=== PATIENT | male | born 1950 | race Caucasian/White ===

== ENCOUNTER → 2016-12-13 | Outpatient (CLI) | payer OTHER ==
[~2016-12-13] MED LIST: ASPI325T39 PO; FLUT0.0529 NAE; LVTUNK PO; MOME220A INH; OMEP40CA PO; PSYL0.524; SIMV40TA2 PO; TAMS0.4C38 PO
== END | disposition home or self-care (01) ==
LOC: C.LABBFT 08:32
PROVIDERS: ATTEND Internal Medicine
DX: E03.9 Hypothyroidism, unspecified (principal)

== ENCOUNTER → 2017-04-26 | Outpatient (CLI) | payer OTHER ==
[2017-04-26 12:29] LABS: HEMATOCRIT 39.5 % (42-52); LYMPH % 7.7 %; MEAN CELL VOLUME 87.6 fL (80-100); MEAN CORPUSCULAR HEMOGLOBIN 28.2 pg (25-34); MEAN CORPUSCULAR HGB CONC 32.2 g/dl (32-36); MEAN PLATELET VOLUME 10.7 fL (7.4-10.4); MONO % 6.7 %; NEUT % 83.9 %; PLATELET COUNT 168 K/uL (130-400); RED BLOOD COUNT 4.51 M/uL (4.7-6.1); WHITE BLOOD COUNT 7.93 K/uL (4.8-10.8)
[2017-04-26 12:30] LABS: BASO % 0.3 %; BASO ABS # 0.02 K/uL (0-0.2); COMPLETE YES; EOS % 1.3 %; IG% 0.1 %; LYMPH ABS # 0.61 K/uL (1.2-3.4)
[2017-04-26 12:55] LABS: PROSTATE SPECIFIC ANTIGEN 0.111 ng/ml (0.000-4.000); THYROID STIMULATING HORMONE 0.946 uIu/ml (0.300-4.500)
== END | disposition home or self-care (01) ==
LOC: C.LABBFT 08:04
PROVIDERS: ATTEND Internal Medicine
DX: D64.9 Anemia, unspecified (principal); N40.0 Benign prostatic hyperplasia without lower urinary tract symptoms; E03.9 Hypothyroidism, unspecified

== ENCOUNTER 2017-10-23 13:41 | Inpatient (IN) | payer OTHER ==
[~2017-10-23] VITALS: Ht 177.8 cm; Wt 85.7 kg
[2017-10-23] MEDS ORDERED: THIAMINE HCL 100 MG/ML 2 ML VIAL IV STA (13:57)
[2017-10-23] MEDS ORDERED: SODIUM CHLORIDE 0.9% 1000ML 1,000 ML IV ONE (13:57)
[2017-10-23] MEDS ORDERED: ONDANSETRON INJ 2 MG/ML 2 ML VIAL IV STA (14:00)
--- NOTE | 2017-10-23 14:02 | EMERGENCY ROOM VISIT NOTE ---
History Report prepared by Rinaibjohnson: Ade Oleary Under the Supervision of: Dr. Lukas Perry D.O. First contact with patient: 13:51 Chief Complaint: VOMITING Stated Complaint: VOMITING,DIARRHEA Nursing Triage Summary: pt reports waking at 0230 yesterday morning vomiting , diarrhea. not able to keep anything down. feels weak. has bilat abd pain History of Present Illness The patient is a 66 year old male who presents to the Emergency Room with complaints of persistent vomiting since 229 yesterday morning. He is accompanied by his . He reports he and his went out on Monday night, 2 days ago, and he had a "few beers". He felt fine when he went to bed except for minor acid reflux symptoms. At 229 morning, he woke up extremely nauseous and started vomiting. His vomit has been "dark" in color. He also complains of shortness of breath, abdominal pain, diarrhea and weakness. He reports he has not been able to keep anything down, not even liquids and has not been able to eat since Monday night. The patients states he was supposed to undergo an endoscopy recently, but he canceled the appointment. He has been rescheduled for later this year. The patient denies any fevers, chest pain, melena, hematochezia, urinary symptoms or leg swelling. Source of History: patient, spouse/significant other () Onset: 229 yesterday morning Position: other (global) Timing: other (persistent) Associated Symptoms: + SOB, + nausea, + diarrhea, + weakness, No fevers, No chest pain, No melena, No hematochezia, No urinary symptoms Review of Systems See HPI for pertinent positives & negatives. A total of 10 systems reviewed and were otherwise negative. Past Medical & Surgical Medical Problems: (1) GERD (gastroesophageal reflux disease) (2) Hyperlipidemia Social History Smoking Status: Never Smoker Alcohol Use: occasionally Drug Use: none Marital Status: Housing Status: lives with family Occupation Status: retired Current/Historical Medications Scheduled Aspirin (Aspirin Ec), 162.5 MG PO DAILY Fluticasone Propionate (Nasal) (Allergy Nasal [place] [address]), 2 SPRAYS TANVIR DAILY Levothyroxine Sodium (Synthroid), 125 MCG PO DAILY Mometasone Furoate (Inhalation (Asmanex Hfa), 1 PUFF INH QPM Omeprazole (Prilosec), 40 MG PO DAILY Psyllium (Metamucil), DAILY Simvastatin (Zocor), 40 MG PO QPM Tamsulosin Hcl (Flomax), 0.4 MG PO DAILY Allergies Coded Allergies: No Known Allergies (Unverified , 10/23/17) Physical Exam Vital Signs Date Time Temp Pulse Resp B/P (MAP) Pulse Ox O2 Delivery O2 Flow Rate FiO2 10/23/17 16:30 91 27 101/65 91 Oxymask 5.0 10/23/17 16:00 88 26 108/61 91 Oxymask 5.0 10/23/17 15:30 90 27 103/65 93 Oxymask 5.0 10/23/17 15:00 95 25 104/65 91 Oxymask 5.0 10/23/17 14:29 95 28 110/97 94 Nasal Cannula 2.0 10/23/17 14:13 94 Nasal Cannula 2.0 10/23/17 14:10 85 Room Air 10/23/17 13:56 94 10/23/17 13:48 36.6 120 20 83/58 96 Room Air Physical Exam GENERAL: Patient is awake, alert, mildly anxious but overall comfortable EYES: The conjunctivae are clear. The pupils are round and reactive. EARS, NOSE, MOUTH AND THROAT: The nose is without any evidence of any deformity. Mucous membranes are moist tongue is midline NECK: The neck is nontender and supple. RESPIRATORY: Lung sounds are diminished at the left base, mild tachypnea noted but no conversational dyspnea CARDIOVASCULAR: Regular rate and rhythm noted to auscultation, there are no murmurs noted GASTROINTESTINAL: The abdomen is soft. Bowel sounds are present in all quadrants. Abdomen is nontender MUSCULOSKELETAL/EXTREMITIES: There is no evidence of gross deformity full range of motion is noted in the hips and shoulders SKIN: There is no obvious evidence of any rash. There are no petechiae, pallor or cyanosis noted. NEUROLOGIC: Patient is awake alert and oriented x3 strength is symmetric patellar reflexes are 2+ bilaterally Medical Decision & Procedures ER Provider Diagnostic Interpretation: Radiology results as stated below per my review and radiologist interpretation: SINGLE VIEW CHEST CLINICAL HISTORY: Sepsis. FINDINGS: An AP, portable, upright chest radiograph is compared to study dated 12/01/15. The examination is degraded by portable technique and patient rotation. The heart is top normal for projection and there is atherosclerotic calcification of the thoracic aorta. Emphysema is suspected. There is patchy airspace consolidation throughout the left lung, typical in appearance for pneumonia. There is a trace associated left pleural effusion. The right lung appears clear. No pneumothorax is seen. The skeletal structures are osteopenic. The bony thorax is grossly intact. IMPRESSION: Patchy airspace consolidation is seen throughout the left lung and there is a small left pleural effusion. The appearance is typical for pneumonia. Radiographic follow-up to resolution is recommended.. Electronically signed by: Sid Bravo M.D. 10/23/2017 2:27 PM Laboratory Results 10/23/17 14:08 Red Blood Count 4.27, Mean Corpuscular Volume 82.7, Mean Corpuscular Hemoglobin 28.1, Mean Corpuscular Hemoglobin Concent 34.0, Mean Platelet Volume 10.0, Neutrophils (%) (Auto) 85.4, Lymphocytes (%) (Auto) 3.7, Monocytes (%) (Auto) 4.7, Eosinophils (%) (Auto) 0.2, Basophils (%) (Auto) 0.3, Neutrophils # (Auto) 11.39, Lymphocytes # (Auto) 0.49, Monocytes # (Auto) 0.62, Eosinophils # (Auto) 0.03, Basophils # (Auto) 0.04 10/23/17 14:08 Test 10/23/17 14:08 10/23/17 14:11 10/23/17 14:15 10/23/17 14:25 White Blood Count 13.33 K/uL (4.8-10.8) Red Blood Count 4.27 M/uL (4.7-6.1) Hemoglobin 12.0 g/dL (14.0-18.0) Hematocrit 35.3 % (42-52) Mean Corpuscular Volume 82.7 fL (80-100) Mean Corpuscular Hemoglobin 28.1 pg (25-34) Mean Corpuscular Hemoglobin Concent 34.0 g/dl (32-36) Platelet Count 205 K/uL (130-400) Mean Platelet Volume 10.0 fL (7.4-10.4) Neutrophils (%) (Auto) 85.4 % Lymphocytes (%) (Auto) 3.7 % Monocytes (%) (Auto) 4.7 % Eosinophils (%) (Auto) 0.2 % Basophils (%) (Auto) 0.3 % Neutrophils # (Auto) 11.39 K/uL (1.4-6.5) Lymphocytes # (Auto) 0.49 K/uL (1.2-3.4) Monocytes # (Auto) 0.62 K/uL (0.11-0.59) Eosinophils # (Auto) 0.03 K/uL (0-0.5) Basophils # (Auto) 0.04 K/uL (0-0.2) RDW Standard Deviation 40.7 fL (36.4-46.3) RDW Coefficient of Variation 13.5 % (11.5-14.5) Immature Granulocyte % (Auto) 5.7 % Immature Granulocyte # (Auto) 0.76 K/uL (0.00-0.02) Toxic Vacuolation 1+ Erythrocyte Sedimentation Rate 29 mm/hr (0-14) Prothrombin Time 13.8 SECONDS (9.0-12.0) Prothromb Time International Ratio 1.3 (0.9-1.1) Activated Partial Thromboplast Time 32.4 SECONDS (21.0-31.0) Partial Thromboplastin Ratio 1.2 Est Creatinine Clear Calc Drug Dose 43.2 ml/min Estimated GFR () 43.0 Estimated GFR (Non- 37.1 BUN/Creatinine Ratio 16.5 (10-20) Calcium Level 8.2 mg/dl (8.5-10.1) Phosphorus Level 3.8 mg/dl (2.5-4.9) Magnesium Level 1.6 mg/dl (1.8-2.4) Total Bilirubin 2.2 mg/dl (0.2-1) Aspartate Amino Transf (AST/SGOT) 36 U/L (15-37) Alanine Aminotransferase (ALT/SGPT) 35 U/L (12-78) Alkaline Phosphatase 64 U/L (45-117) Total Creatine Kinase 252 U/L (39-308) Creatine Kinase MB 4.0 ng/ml (0.5-3.6) Creatine Kinase MB Ratio 1.6 (0-3.0) Troponin I 0.059 ng/ml (0-0.045) C-Reactive Protein 27.70 mg/dl (0-0.29) Pro-B-Type Natriuretic Peptide 1214 pg/ml (0-900) Total Protein 6.5 gm/dl (6.4-8.2) Albumin 3.1 gm/dl (3.4-5.0) Globulin 3.4 gm/dl (2.5-4.0) Albumin/Globulin Ratio 0.9 (0.9-2) Lipase 71 U/L (73-393) Bedside Lactic Acid Venous 3.97 mmol/L (0.90-1.70) Bedside Hemoglobin 12.6 g/dl (14.0-18.0) Bedside Hematocrit 37 % (42-52) Bedside Sodium 133 mEq/L (135-144) Bedside Potassium 4.6 mEq/L (3.3-5.0) Bedside Chloride 99 mEq/L (101-112) Bedside Total CO2 24 mEq/l (24-31) Anion Gap 16.0 mmol/L (16-25) Bedside Blood Urea Nitrogen 30 mg/dl (7-18) Bedside Creatinine 1.8 mg/dl (0.6-1.3) Bedside Glucose (other) 104 mg/dl (70-99) Bedside Ionized Calcium (Vandana) 0.96 mmol/l (1.12-1.32) Influenza Type A (RT-PCR) Neg for Influ A (NEG) Influenza Type A Antigen Neg for Influ A (NEG) Influenza Type B Antigen Neg for Influ B (NEG) Influenza Type B (RT-PCR) Neg for Influ B (NEG) Venous Blood pH 7.40 (7.36-7.41) Venous Blood Partial Pressure CO2 43 mmHg (38.0-50.0) Venous Blood Partial Pressure O2 42 mmHg Venous Blood HCO3 26 mmol/L Venous Blood Oxygen Saturation < 60.0 % Venous Blood Base Excess 1.2 mEq/L Laboratory results per my review. Medications Administered Medications (Trade) Dose Ordered Sig/Nancy Route Start Time Stop Time Status Last Admin Dose Admin Sodium Chloride 1,000 ml @ 999 mls/hr Q1H1M ONCE IV 10/23/17 13:57 10/23/17 14:57 DC 10/23/17 14:26 999 MLS/HR Thiamine HCl (Vitamin B-1 Inj) 100 mg NOW STAT IV 10/23/17 13:57 10/23/17 13:59 DC 10/23/17 14:32 100 MG Ondansetron HCl (Zofran Inj) 4 mg NOW STAT IV 10/23/17 14:00 10/23/17 14:01 DC 10/23/17 14:32 4 MG Sodium Chloride 1,000 ml @ 999 mls/hr Q1H1M STAT IV 10/23/17 14:14 10/23/17 15:14 DC 10/23/17 14:26 999 MLS/HR Piperacillin Sod/ Tazobactam Sod (Zosyn Iv) 4.5 gm NOW STAT IV 10/23/17 14:14 10/23/17 14:15 DC 10/23/17 14:33 4.5 GM Magnesium Sulfate (Magnesium Sulfate) 2 gm NOW STAT IV 10/23/17 14:38 10/23/17 14:40 DC 10/23/17 15:01 2 GM ECG Indication: SOB/dyspnea Rate (beats per minute): 95 Rhythm: sinus rhythm Findings: no ectopy, other (Diffuse T-wave flattening noted, no acute ST segments) Comparison ECG Date: no prior available ED Course 1356: The patient was evaluated in room C6. A complete history and physical examination were performed. 1357: Thiamine HCl 100 mg IV, NSS 1000 ml @ 999 mls/hr IV. 1400: Zofran 4 mg IV. 1414: Zosyn 4.5 gm IV, NSS 1000 ml @ 999 mls/hr IV. 1438: Magnesium Sulfate 2 gm IV. 1450: I reevaluated the patient. He is resting comfortably. I discussed his results and my recommendation he remain in the hospital for further evaluation and management and he and his verbalized complete understanding and agreement. 1518: I discussed the patients case with Dr. Borjas, [facility] Hospitalist. The patient will be further evaluated. Medical Decision Prior records/ancillary studies reviewed. Triage Nursing notes reviewed. Additional history obtained from the patients . The patient's history was concerning for respiratory difficulties. Differential diagnosis: Etiologies such as infections, reactive airway disease, pneumonia, pneumothorax , COPD, CHF, cardiac ischemia, pulmonary embolism, musculoskeletal, gastrointestinal, as well as others were entertained. The patient is a 66-year-old male who presented to the emergency department for an evaluation of nausea and vomiting. The patient was found to be hypotensive as well as hypoxic. He was treated with IV fluids in the emergency department. His blood pressure improved. The patient was also found have significant findings consistent with pneumonia on chest x-ray. He was started on IV antibiotics. I discussed the patient's laboratory and radiographic studies with him. I also discussed his case with the on-call [facility] hospitalist group. They've agreed to evaluate the patient in emergency apartment for further management and disposition. The patient was reevaluated multiple times and continued to improve. He was placed on supplemental oxygen and his oxygen saturations acceptable. Medication Reconcilliation Current Medication List: was personally reviewed by me Blood Pressure Screening Patient's blood pressure: Normal blood pressure Blood pressure disposition: Did not require urgent referral Consults Time Called: 151 Consulting Physician: Dr. Borjas [facility] Hospitalist Returned Call: [phone] I discussed the patients case with Dr. Borjas [facility] Hospitalist. The patient will be further evaluated. Impression Primary Impression: Pneumonia Additional Impressions: Hypoxia Hypotension Hypomagnesemia Scribe Attestation The scribe's documentation has been prepared under my direction and personally reviewed by me in its entirety. I confirm that the note above accurately reflects all work, treatment, procedures, and medical decision making performed by me. Departure Information Dispostion Being Evaluated By Hospitalist Referrals Yg Ji M.D. (PCP) Patient Instructions [facility] Problem Qualifiers Primary Impression: Pneumonia Pneumonia type: due to unspecified organism Laterality: left Lung location : unspecified part of lung Qualified Codes: J18.9 - Pneumonia, unspecified organism Additional Impressions: Hypotension Hypotension type: unspecified hypotension type Qualified Codes: I95.9 - Hypotension, unspecified
[2017-10-23] MEDS ORDERED: PIPERACILLIN/TAZOBACTAM 4.5 GM/100ML D5W IV STA (14:14)
[2017-10-23] MEDS ORDERED: SODIUM CHLORIDE 0.9% 1000ML 1,000 ML IV STA (14:14)
[2017-10-23] MEDS ORDERED: LEVO125T72 PO (14:17)
[2017-10-23] MEDS ORDERED: OMEP40CA41 PO (14:17)
[2017-10-23] MEDS ORDERED: MOME16.7 INH (14:17)
[2017-10-23] MEDS ORDERED: FLUT50SP45 NAE (14:17)
[2017-10-23 14:24] LABS: HEMATOCRIT 35.3 % (42-52); MEAN CELL VOLUME 82.7 fL (80-100); MEAN CORPUSCULAR HEMOGLOBIN 28.1 pg (25-34); PLATELET COUNT 205 K/uL (130-400); RED CELL DISTRIBUTION WIDTH CV 13.5 % (11.5-14.5); RED CELL DISTRIBUTION WIDTH SD 40.7 fL (36.4-46.3); WHITE BLOOD COUNT 13.33 K/uL (4.8-10.8)
[2017-10-23 14:27] LABS: ISTAT CREATININE 1.8 mg/dl (0.6-1.3); ISTAT IONIZED CALCIUM 0.96 mmol/l (1.12-1.32); ISTAT POTASSIUM 4.6 mEq/L (3.3-5.0)
--- NOTE | 2017-10-23 14:28 | DIAGNOSTIC IMAGING REPORT ---
SINGLE VIEW CHEST CLINICAL HISTORY: Sepsis. FINDINGS: An AP, portable, upright chest radiograph is compared to study dated 12/01/15. The examination is degraded by portable technique and patient rotation. The heart is top normal for projection and there is atherosclerotic calcification of the thoracic aorta. Emphysema is suspected. There is patchy airspace consolidation throughout the left lung, typical in appearance for pneumonia. There is a trace associated left pleural effusion. The right lung appears clear. No pneumothorax is seen. The skeletal structures are osteopenic. The bony thorax is grossly intact. IMPRESSION: Patchy airspace consolidation is seen throughout the left lung and there is a small left pleural effusion. The appearance is typical for pneumonia. Radiographic follow-up to resolution is recommended.. Electronically signed by: Sid Bravo M.D. 10/23/2017 2:27 PM Dictated Date/Time: 10/23/2017 2:26 PM
[2017-10-23 14:33] LABS: INR 1.3 (0.9-1.1); PTT PATIENT 32.4 SECONDS (21.0-31.0)
[2017-10-23 14:37] LABS: ALBUMIN 3.1 gm/dl (3.4-5.0); CALCIUM 8.2 mg/dl (8.5-10.1); CREATININE 1.83 mg/dl (0.60-1.40); POTASSIUM 4.4 mmol/L (3.5-5.1)
[2017-10-23] MEDS ORDERED: MAGNESIUM SULFATE 1GM / D5W 1 GM BAG IV STA (14:38)
[2017-10-23 14:48] LABS: PHOSPHORUS 3.8 mg/dl (2.5-4.9); TOTAL PROTEIN 6.5 gm/dl (6.4-8.2)
[2017-10-23 14:51] LABS: BASO % 0.3 %; BASO ABS # 0.04 K/uL (0-0.2); EOS % 0.2 %; EOS ABS # 0.03 K/uL (0-0.5); IG# 0.76 K/uL (0.00-0.02); LYMPH % 3.7 %; LYMPH ABS # 0.49 K/uL (1.2-3.4); MONO % 4.7 %; MONO ABS # 0.62 K/uL (0.11-0.59); NEUT % 85.4 %; NEUT ABS # 11.39 K/uL (1.4-6.5)
[2017-10-23 14:53] LABS: INFLUENZA B ANTIGEN Neg for Influ B (NEG)
[2017-10-23] MEDS ORDERED: ALUMINUM/MAGNESIUM/SIMETH (MAALOX MAX) 30 ML UDC PO PRN (15:30)
[2017-10-23] MEDS ORDERED: ONDANSETRON INJ 2 MG/ML 2 ML VIAL IV PRN (15:30)
[2017-10-23] MEDS ORDERED: ACETAMINOPHEN 325 MG TAB PO PRN (15:30)
[2017-10-23] MEDS ORDERED: ALBUT/IPRATROP 3MG/0.5MG NEB 3 ML VIAL INH PRN (15:30)
[2017-10-23] MEDS ORDERED: MAGNESIUM HYDROXIDE SUSP 30 ML UDC PO PRN (15:30)
[2017-10-23] MEDS ORDERED: POLYETHYLENE (MIRALAX) 17 GM PACK PO PRN (15:30)
[2017-10-23 15:32] LABS: INFLUENZA A PCR Neg for Influ A (NEG); INFLUENZA B PCR Neg for Influ B (NEG)
--- NOTE | 2017-10-23 16:44 | History and Physical ---
History & Physical Date of Service Oct 23, 2017. History & Physical admit #[id number]
[2017-10-23 17:00] VITALS: BP 120/66; PULSE 93; TEMP 36.6; O2SAT 93; Ht 177.8 cm; Wt 85.7 kg
--- NOTE | 2017-10-23 17:09 | HISTORY & PHYSICAL EXAMINATION ---
DATE OF ADMISSION: 10/23/2017 ADMISSION HISTORY AND PHYSICAL CHIEF COMPLAINT: Nausea, vomiting, and weakness. HISTORY OF PRESENT ILLNESS: The patient is a pleasant 66-year-old male who presents after having had nausea, vomiting, and diarrhea all day yesterday and fatigue and shortness of breath today. He was in his usual state of health Monday, they went out to dinner, he did have some indigestion and reflux afterwards; however, he threw up, a good day yesterday and had diarrhea all day yesterday and 3 today. He was feeling weak, fatigued, even a little bit out of it mentally and in hindsight notes dyspnea on exertion, although with foresight he felt that was just extreme fatigue from being so dehydrated. He has not had fevers, chills, or sweats. He does not have chest pain or cough. REVIEW OF SYSTEMS: Otherwise negative, except for as above. He presented to the ER, was found to have a rather large left-sided pneumonia, hypoxia, low and blood pressures and we were asked to see him for admission for further evaluation and treatment. PAST MEDICAL HISTORY: Includes aortic insufficiency, allergic rhinitis, anemia, asthma, GERD with Hamm esophagus, BPH, bullous pemphigoid, carotid artery disease, esophagitis, Luke thyroiditis, hyperlipidemia, now hypothyroidism. MEDICATIONS: 162 mg of aspirin a day, 80 mg of Lipitor, clobetasol cream to his affected areas, Flovent 110 mcg 2 puffs b.i.d., Synthroid 125 mcg daily, Metamucil daily, multivitamin daily, omeprazole 40 mg daily, ProAir 2 puffs q.i.d. p.r.n. shortness of breath or wheeze, Zantac 300 mg daily, and Flomax 0.4 daily. PAST SURGICAL HISTORY: Includes colonoscopy in 2005. FAMILY HISTORY: Including lung cancer in his mom and dad. SOCIAL HISTORY: He is a former smoker, occasional alcohol. He is . ALLERGIES: No known drug allergies. PHYSICAL EXAMINATION: VITAL SIGNS: Temp 36.6, pulse 120, blood pressure 83/58. He is initially listed as 96% on room air, but I believe he was actually 85% on room air. GENERAL: He is awake, alert, oriented x3, very-fatigued appearing but otherwise in no acute distress. HEENT: Normocephalic, atraumatic. Mucous membranes are moist. CARDIOVASCULAR: Slightly tachycardic. No rubs, murmurs, or gallops. LUNGS: Show left sided diminished air entry and scattered rales and the right is fairly clear. No rhonchi or wheezes. No accessory muscle use. Good effort. ABDOMEN: Soft, nondistended, nontender, no masses or organomegaly. EXTREMITIES: Without cyanosis, clubbing or edema. No calf tenderness. SKIN: Shows no rashes, no pallor or icterus. MENTAL STATE: Shows good recent and remote recall. Normal mood and affect. Good judgment and insight. MUSCULOSKELETAL: Yields no gross lesions. LABS AND DIAGNOSTICS: CBC shows a white count of 13.33, hemoglobin 12, platelets 205. Complete metabolic panel with sodium 133, potassium 4.4, chloride 99, CO2 26, BUN 30, creatinine 1.83, his baseline is normal, calcium 8.2, and glucose 96. Phos 3.8, mag 1.6, total bilirubin 2.2, AST 36, ALT 35, alkaline phosphatase 64. CK total of 252 with an MB of 4, troponin of 0.059. His CRP is 27.7, his BNP is 1214, total protein 6.5, albumin 3.1, lipase 71. PT of 13.8 with an INR of 1.3, PTT of 32.4. Flu swabs are negative. Chest x-ray shows a rather extensive left-sided infiltrate, read as patchy airspace consolidation seen throughout the left lung, small left pleural effusion, appearance typical for pneumonia. Radiographic follow up to resolution is recommended. ASSESSMENT AND PLAN: 1. Sepsis related to pneumonia, possibly with early septic shock and/or severe sepsis because of the renal insufficiency, although see below. While certainly, he would harbor risks mostly for a community-acquired pneumonia and if it was aspiration, the right side would be more likely than the left. Overall, in fact most signs do point of this being an aspiration pneumonia given that he is not showing any real signs or symptoms of pneumonia, but he did have fairly severe nausea and vomiting. We will cover for both utilizing Zithromax and Rocephin to cover for the community-acquired portion and adding metronidazole to cover for possible anaerobes. The Rocephin being adequate to cover for the gram negative, should this be aspiration. Ongoing oxygen support and nebulizers and obviously a follow-up chest x-ray to ensure clearing, particularly given he is a former smoker and family history of lung cancer status. 2. Hypotension. It seems more likely from severe dehydration from the stomach bug and diarrhea than from septic shock, although both possible. IV fluids and follow closely. 3. Acute renal failure, same as above with the hypotension, follow with rehydration. 4. Elevated troponin. This appears to be demand ischemia due to his hypovolemia and hypoxia as well as increased metabolic stress. His echocardiogram does not show acute ischemic changes and he shows no cardiac symptoms, but he does harbor some cardiac risks. We will follow serial cardiac enzymes and check an echocardiogram tomorrow to ensure no serious findings. 5. Asthma. Continue his home medications, add nebulizers in addition. 6. Hypothyroidism. Continue home medications. 7. Deep venous thrombosis prophylaxis, Lovenox.
[2017-10-23] MEDS ORDERED: ENOXAPARIN 40 MG/0.4 ML SYR SC SCH (18:00)
[2017-10-23] MEDS: CEFTRIAXONE SOD INJ 1 GM in DEXTROSE 5% ADD-VANTAGE 50ML 50 ML IV SCH (18:30)
[2017-10-23] MEDS: SODIUM CHLOR 0.45% + 20MEQ KCL 1,000 ML IV SCH (18:30)
[2017-10-23 19:03] VITALS: BP 101/67; PULSE 89; TEMP 36.7; O2SAT 93
[2017-10-23] MEDS: AZITHROMYCIN IV 500 MG in DEXTROSE 5% 250ML 250 ML IV SCH (19:21)
[2017-10-23 20:00] VITALS: O2SAT 93
[2017-10-23] MEDS: METRONIDAZOLE / NSS 500 MG in PREMIXED NSS 100 ML IV SCH (20:40)
[2017-10-23] MEDS: SIMVASTATIN 40 MG TAB PO SCH (20:41)
[2017-10-23] MEDS: MOMETASONE FUROATE 14 PUFF/1 INHALER INH SCH (20:47)
[2017-10-23 23:33] VITALS: BP 96/60; PULSE 86; TEMP 36.9; O2SAT 93
[2017-10-24] VITALS (7 sets, daily range): BP systolic 95–121; BP diastolic 58–78; PULSE 82–119; TEMP 36.7–37.3; O2SAT 87–97
[2017-10-24] MEDS: SODIUM CHLOR 0.45% + 20MEQ KCL 1,000 ML IV SCH ×3 (02:37→20:17)
[2017-10-24] MEDS: METRONIDAZOLE / NSS 500 MG in PREMIXED NSS 100 ML IV SCH ×3 (04:14→20:11)
[2017-10-24] MEDS: LEVOTHYROXINE 125 MCG TAB PO SCH (05:26)
[2017-10-24 05:59] LABS: HEMATOCRIT 29.8 % (42-52); HEMOGLOBIN 10.1 g/dL (14.0-18.0); MEAN CELL VOLUME 83.9 fL (80-100); MEAN CORPUSCULAR HEMOGLOBIN 28.5 pg (25-34); MEAN CORPUSCULAR HGB CONC 33.9 g/dl (32-36); PLATELET COUNT 164 K/uL (130-400); RED CELL DISTRIBUTION WIDTH CV 13.7 % (11.5-14.5); RED CELL DISTRIBUTION WIDTH SD 41.9 fL (36.4-46.3); WHITE BLOOD COUNT 11.31 K/uL (4.8-10.8)
[2017-10-24 06:27] LABS: CALCIUM 8.1 mg/dl (8.5-10.1); CREATININE 1.22 mg/dl (0.60-1.40); POTASSIUM 4.1 mmol/L (3.5-5.1)
[2017-10-24 06:37] LABS: BASO % 0.2 %; BASO ABS # 0.02 K/uL (0-0.2); EOS % 0.4 %; EOS ABS # 0.04 K/uL (0-0.5); IG# 0.24 K/uL (0.00-0.02); LYMPH ABS # 0.45 K/uL (1.2-3.4); MONO % 4.2 %; MONO ABS # 0.48 K/uL (0.11-0.59); NEUT % 89.1 %; NEUT ABS # 10.08 K/uL (1.4-6.5)
[2017-10-24] MEDS: FLUTICASONE PROPIONATE NA SPR 16 GM BTL NAE SCH (08:29)
[2017-10-24] MEDS: TAMSULOSIN HCL 0.4 MG CAP PO SCH (08:30)
[2017-10-24] MEDS: ASPIRIN 81 MG ECTAB PO SCH (08:30)
--- NOTE | 2017-10-24 08:32 | Hospitalist Progress Note ---
Hospitalist Progress Note Date of Service Oct 24, 2017. (Shweta Silveira PA-C) Subjective Pt evaluation today including: conversation w/ patient, physical exam, chart review, lab review, review of studies Pain: None PO Intake: Fair Voiding: no voiding problems The patient was seen and examined this morning. Pt reports feeling extremely tired, and fatigued with very little activity. He reports feeling his breathing is no different, and cant tell if the O2 is actually helping him. He denies any fever, chills or sweats overnight. Pt provides hx of very foul taste in mouth the morning after drinking alcohol and that he frequently gets nauseous from this and needs to vomit so that he feels better. On average the pt drinks 6 beers once weekly with his as a night out. He notes he was drinking last Monday night and vomited at approximately 0230. He reports not wanting to see what he vomits so doesn't turn the light on. He admits to having episodes of black/very dark vomit in the past. He is planning for endoscopy and colonoscopy this year with Dr. Forman. Pt has a PCP appt with Dr. Ji in 2 weeks to have a referral for this. He last had upper/lower scopes 3 years ago. Constitutional: No fever, No chills, No sweats Eyes: No redness, No diplopia ENT: + sore throat, No nasal symptoms, No dental problems, No trouble swallowing Respiratory: + cough, + shortness of breath, + dyspnea on exertion, No sputum, No wheezing Cardiovascular: No chest pain, No palpitations Abdomen: + problem reported (last BM was 2 days ago), No pain, No nausea, No vomiting, No diarrhea Male : No dysuria Neurologic: + weakness (generalized), No numbness/tingling Endo: + fatigue Skin: No rash, No itch (Shweta Silveira, DARWIN) Objective Vital Signs Date Time Temp Pulse Resp B/P (MAP) Pulse Ox O2 Delivery O2 Flow Rate FiO2 10/24/17 08:21 36.9 83 19 95/74 (81) 92 Nasal Cannula 6.0 10/24/17 04:00 Nasal Cannula 5.0 10/24/17 03:58 37.0 87 20 107/58 (74) 91 Nasal Cannula 6.0 10/23/17 23:59 Nasal Cannula 5.0 10/23/17 23:33 36.9 86 19 96/60 (72) 93 Oxymask 5.0 10/23/17 20:00 93 Oxymask 4.0 10/23/17 19:03 36.7 89 18 101/67 (78) 93 Oxymask 5.0 10/23/17 17:00 36.6 93 23 120/66 93 Mask 4.0 10/23/17 16:32 36.6 91 27 101/65 91 10/23/17 16:30 91 27 101/65 91 Oxymask 5.0 10/23/17 16:00 88 26 108/61 91 Oxymask 5.0 10/23/17 15:30 90 27 103/65 93 Oxymask 5.0 10/23/17 15:00 95 25 104/65 91 Oxymask 5.0 10/23/17 14:29 95 28 110/97 94 Nasal Cannula 2.0 10/23/17 14:13 94 Nasal Cannula 2.0 10/23/17 14:10 85 Room Air 10/23/17 13:56 94 10/23/17 13:48 36.6 120 20 83/58 96 Room Air (Shweta Silveira PA-C) Physical Exam General Appearance: WD/WN, no apparent distress Eyes: PERRL, EOMI ENT: hearing grossly normal, + pertinent finding (MMM, pharynx without erythema. ) Neck: supple, no JVD Respiratory/Chest: chest non-tender, no accessory muscle use, + pertinent finding (on 6 L O2, coarse breath sounds in the left posterior parks, good breath sounds in the right. +nonproductive cough. ) Cardiovascular: regular rate, rhythm, no murmur Abdomen: normal bowel sounds, non tender, soft Extremities: non-tender, no pedal edema Neurologic/Psychiatric: alert, normal mood/affect, oriented x 3 Skin: normal color, warm/dry (Shweta Silveira PA-C) Laboratory Results Last 24 Hours Test 10/23/17 14:08 10/23/17 14:11 10/23/17 14:15 10/23/17 14:25 White Blood Count 13.33 K/uL Red Blood Count 4.27 M/uL Hemoglobin 12.0 g/dL Hematocrit 35.3 % Mean Corpuscular Volume 82.7 fL Mean Corpuscular Hemoglobin 28.1 pg Mean Corpuscular Hemoglobin Concent 34.0 g/dl Platelet Count 205 K/uL Mean Platelet Volume 10.0 fL Neutrophils (%) (Auto) 85.4 % Lymphocytes (%) (Auto) 3.7 % Monocytes (%) (Auto) 4.7 % Eosinophils (%) (Auto) 0.2 % Basophils (%) (Auto) 0.3 % Neutrophils # (Auto) 11.39 K/uL Lymphocytes # (Auto) 0.49 K/uL Monocytes # (Auto) 0.62 K/uL Eosinophils # (Auto) 0.03 K/uL Basophils # (Auto) 0.04 K/uL RDW Standard Deviation 40.7 fL RDW Coefficient of Variation 13.5 % Immature Granulocyte % (Auto) 5.7 % Immature Granulocyte # (Auto) 0.76 K/uL Toxic Vacuolation 1+ Erythrocyte Sedimentation Rate 29 mm/hr Prothrombin Time 13.8 SECONDS Prothromb Time International Ratio 1.3 Activated Partial Thromboplast Time 32.4 SECONDS Partial Thromboplastin Ratio 1.2 Sodium Level 133 mmol/L Potassium Level 4.4 mmol/L Chloride Level 99 mmol/L Carbon Dioxide Level 26 mmol/L Anion Gap 8.0 mmol/L 16.0 mmol/L Blood Urea Nitrogen 30 mg/dl Creatinine 1.83 mg/dl Est Creatinine Clear Calc Drug Dose 43.2 ml/min Estimated GFR () 43.0 Estimated GFR (Non- 37.1 BUN/Creatinine Ratio 16.5 Random Glucose 96 mg/dl Calcium Level 8.2 mg/dl Phosphorus Level 3.8 mg/dl Magnesium Level 1.6 mg/dl Total Bilirubin 2.2 mg/dl Aspartate Amino Transf (AST/SGOT) 36 U/L Alanine Aminotransferase (ALT/SGPT) 35 U/L Alkaline Phosphatase 64 U/L Total Creatine Kinase 252 U/L Creatine Kinase MB 4.0 ng/ml Creatine Kinase MB Ratio 1.6 Troponin I 0.059 ng/ml C-Reactive Protein 27.70 mg/dl Pro-B-Type Natriuretic Peptide 1214 pg/ml Total Protein 6.5 gm/dl Albumin 3.1 gm/dl Globulin 3.4 gm/dl Albumin/Globulin Ratio 0.9 Lipase 71 U/L Hepatitis C Antibody Screen NEG Bedside Lactic Acid Venous 3.97 mmol/L Bedside Hemoglobin 12.6 g/dl Bedside Hematocrit 37 % Bedside Sodium 133 mEq/L Bedside Potassium 4.6 mEq/L Bedside Chloride 99 mEq/L Bedside Total CO2 24 mEq/l Bedside Blood Urea Nitrogen 30 mg/dl Bedside Creatinine 1.8 mg/dl Bedside Glucose (other) 104 mg/dl Bedside Ionized Calcium (Vandana) 0.96 mmol/l Influenza Type A (RT-PCR) Neg for Influ A Influenza Type A Antigen Neg for Influ A Influenza Type B Antigen Neg for Influ B Influenza Type B (RT-PCR) Neg for Influ B Venous Blood pH 7.40 Venous Blood Partial Pressure CO2 43 mmHg Venous Blood Partial Pressure O2 42 mmHg Venous Blood HCO3 26 mmol/L Venous Blood Oxygen Saturation < 60.0 % Venous Blood Base Excess 1.2 mEq/L Test 10/23/17 21:24 10/24/17 05:22 Troponin I 0.085 ng/ml 0.073 ng/ml White Blood Count 11.31 K/uL Red Blood Count 3.55 M/uL Hemoglobin 10.1 g/dL Hematocrit 29.8 % Mean Corpuscular Volume 83.9 fL Mean Corpuscular Hemoglobin 28.5 pg Mean Corpuscular Hemoglobin Concent 33.9 g/dl Platelet Count 164 K/uL Mean Platelet Volume 10.0 fL Neutrophils (%) (Auto) 89.1 % Lymphocytes (%) (Auto) 4.0 % Monocytes (%) (Auto) 4.2 % Eosinophils (%) (Auto) 0.4 % Basophils (%) (Auto) 0.2 % Neutrophils # (Auto) 10.08 K/uL Lymphocytes # (Auto) 0.45 K/uL Monocytes # (Auto) 0.48 K/uL Eosinophils # (Auto) 0.04 K/uL Basophils # (Auto) 0.02 K/uL RDW Standard Deviation 41.9 fL RDW Coefficient of Variation 13.7 % Immature Granulocyte % (Auto) 2.1 % Immature Granulocyte # (Auto) 0.24 K/uL Sodium Level 136 mmol/L Potassium Level 4.1 mmol/L Chloride Level 104 mmol/L Carbon Dioxide Level 26 mmol/L Anion Gap 6.0 mmol/L Blood Urea Nitrogen 21 mg/dl Creatinine 1.22 mg/dl Est Creatinine Clear Calc Drug Dose 64.8 ml/min Estimated GFR () 70.2 Estimated GFR (Non- 60.5 BUN/Creatinine Ratio 17.2 Random Glucose 108 mg/dl Calcium Level 8.1 mg/dl (Shweta Silveira, PA-C) Assessment and Plan This is a 66 yo M with pmhx of Sepsis related to pneumonia Left sided pneumonia, possible aspiration - Pt presented with hypotension, severe n/v, generalized weakness - Continue on ceftriaxone, azithromycin and flagyl (day #2) - Pt still requiring high rate of NC, 5L with sats at 91% - leukocytosis improving, afebrile overnight - Continue duonebs - Repeat CXR pending status - pt has remote tobacco use hx and family hx of lung carcinoma ? Upper GI bleed/Variceal bleeding? - Pt reports hx of etoh use 1 x weekly with ~ 6 beers. Notes hx of foul taste morning after consumption of etoh, nausea and +/-coffee ground emesis but has not sought out medical attention. He admits to consumption of etoh past monday and subsequently vomiting - which likely caused aspiration as listed above. Last EGD completed 12/15/[address] Ji showing Barrets and hiatal hernia, no erosions, normal duodenum. - Will increase protonix to BID - Hgb 10.1 down from 12, possibly dilutional with IVFs running at 125 mL/hr. - Will hold DVT ppx for now and do mechanical anticoagulation only. Hypotension - Likely from dehydration - Slightly improved - continue fluids for now Acute renal failure - same as above with the hypotension, follow with rehydration. - Cr. improved today to 1.22 from 1.8 - continue IVFs Elevated troponin. - This appears to be demand ischemia due to his hypovolemia and hypoxia as well as increased metabolic stress. - Troponin trending downward today - await 3rd set. - Echo pending - EKG does not show acute ischemic changes and he shows no cardiac sx Asthma - Continue his home medications: mometasone furomate inh, allow duonebs as above for pna Hypothyroidism. - Continue levothyroxine 125 mcg daily DVT ppx: teds, scds, ambulatory CODE STATUS: FULL CODE Disposition: From home, lives with . Possible d/c in 2 days. (FilShweta williamson PA-C) Attending Attestation: Pt seen/examined, chart reviewed, care plan d/w RUPERT Silveira. I agree w/ the zapata components of her documentation. Pt with ongoing fatigue, dyspnea with exertion, and nonproductive cough. No further emesis or diarrhea. At home apparently had dark appearing stools. Was supposed to see Dr. Matias for ?anemia? VSS, o2 sats acceptable gen - nontoxic, NAD mouth - MMM heart - RRR, s1, s2 lungs - diffuse crackles left ant chest, left posterior chest, right lung clear abd - soft, NT ext - no edema A/P: 1. sepsis 2nd to left-sided pneumonia 2. left-sided pneumonia, community-acquired vs aspiration 3. acute hypoxic resp failure 2nd to #2 4. acute renal failure 2nd to #1, #2 - improved 5. +troponin - myocardial demand ischemia 6. mild anemia, dark appearing stools 7. h/o Hamm's esophagus cont O2, IV abx, supportive care hemoccult his stools check iron studies AM increase PPI to BID dosing updated Ricki SZYMANSKI MD (Kit Szymanski MD)
[2017-10-24] MEDS ORDERED: PANTOprazole SOD 40 MG TAB PO SCH (09:00)
[2017-10-24] MEDS ORDERED: ASPIRIN 81 MG ECTAB PO SCH (09:00)
--- NOTE | 2017-10-24 09:27 | ECHOCARDIOGRAM REPORT ---
*NOTICE TO RECEIVING REPUBLICAN AGENCY This information is strictly Confidential and protected under [place] law. [place] law prohibits you from making any further disclosure of this information unless further disclosure is expressly permitted by the written consent of the person to whom it pertains or is authorized by law. A general authorization for the release of medical or other information is not sufficient for this purpose. Hospital accepts no responsibility if the information is made available to any other person, INCLUDING THE PATIENT. Interpretation Summary * Name: ALIYAH MAX Study Date: 10/24/2017 07:05 AM BP: 107/58 mmHg * Patient Location: [id number].2E\[id number]\E202\[id number]\1 HR: 85 * : 1950 (M/d/yyyy) Gender: Male Height: 70 in * Age: 66 yrs Ethnicity: [place] Weight: 188 lb * Ordering Physician: Tahir Borjas * Referring Physician: Self, Referred * Performed By: [facility] * * Reason For Study: ELEVATED TROPONIN * BSA: 2.0 m2 * -- Conclusions -- * 1. Normal LV size, mild concentric LVH. * 2. Normal LV systolic function. LVEF 55-60%. * 3. Mild RV dilation. Normal RV function. * 4. Aortic vavle sclerosis. Mild to moderate aortic regurgitation. * 5. Borderline dilated ascending aorta, 3.8 cm. * 6. No prior studies for comparison. Procedure Details * A complete two-dimensional transthoracic echocardiogram was performed (2D, M-mode, Doppler and color flow Doppler). Left Ventricle * The left ventricle is grossly normal size. * There is mild concentric left ventricular hypertrophy. * Ejection Fraction = 55-60%. * Septal motion is consistent with conduction abnormality. Right Ventricle * The right ventricle is mild to moderately dilated. * The right ventricular systolic function is normal as assessed by tricuspid annular plane systolic excursion (TAPSE) (normal >1.5 cm). Atria * The left atrial size is normal. * The right atrium is mildly dilated. * No ASD detected; PFO is not assessed. Mitral Valve * The mitral valve is grossly normal. * There is no mitral valve stenosis. Tricuspid Valve * The tricuspid valve is not well visualized, but is grossly normal. * Tricuspid stenosis is absent. * There is trace tricuspid regurgitation. Aortic Valve * The aortic valve is trileaflet. * Aortic valve sclerosis mild, without significant aortic valvular stenosis. * There is discrete nodular thickening of the non- coronary cusp. * No hemodynamically significant valvular aortic stenosis. * Mild to moderate aortic regurgitation. Pulmonic Valve * The pulmonary valve is not well seen, but the Doppler examination is normal without significant regurgitation or stenosis. * Pulmonic stenosis is absent. * There is no significant pulmonary regurgitation. Great Vessels * Borderline dilated ascending aorta. * Asc aorta - 3.8 cm * IVC >2.1, >50% change with respiration. Est RA 8 mmhg. MMode 2D Measurements and Calculations IVSd 1.3 cm IVSs 1.9 cm LVIDd 4.8 cm LVIDs 3.5 cm LVPWd 1.2 cm LVPWs 1.6 cm IVS/LVPW 1.1 FS 27.3 % EDV(Teich) 110.0 ml ESV(Teich) 51.6 ml EF(Teich) 53.1 % EDV(cubed) 113.8 ml ESV(cubed) 43.7 ml EF(cubed) 61.6 % % IVS thick 43.1 % % LVPW thick 25.2 % LV mass(C)d 248.5 grams LV mass(C)dI 122.2 grams/m\S\2 LV mass(C)s 250.9 grams LV mass(C)sI 123.4 grams/m\S\2 SV(Teich) 58.4 ml SI(Teich) 28.7 ml/m\S\2 SV(cubed) 70.2 ml SI(cubed) 34.5 ml/m\S\2 Ao root diam 3.1 cm Ao root area 7.8 cm\S\2 ACS 2.3 cm LA dimension 4.4 cm LA/Ao 1.4 LVOT diam 2.0 cm LVOT area 3.2 cm\S\2 Doppler Measurements and Calculations MV E max david 83.6 cm/sec MV A max david 112.7 cm/sec MV E/A 0.74 MV P1/2t max david 78.5 cm/sec MV P1/2t 68.7 msec MVA(P1/2t) 3.2 cm\S\2 MV dec slope 334.7 cm/sec\S\2 MV dec time 0.13 sec Ao V2 max 180.3 cm/sec Ao max PG 13.0 mmHg Ao max PG (full) 3.1 mmHg WADE(V,A) 2.8 cm\S\2 WADE(V,D) 2.8 cm\S\2 AI max david 337.3 cm/sec AI max PG 45.5 mmHg AI dec slope 137.6 cm/sec\S\2 AI P1/2t 718.1 msec LV V1 max PG 9.9 mmHg LV V1 max 157.5 cm/sec PA V2 max 91.5 cm/sec PA max PG 3.3 mmHg
[2017-10-24] MEDS: POLYETHYLENE (MIRALAX) 17 GM PACK PO SCH (15:25)
[2017-10-24] MEDS: CEFTRIAXONE SOD INJ 1 GM in DEXTROSE 5% ADD-VANTAGE 50ML 50 ML IV SCH (18:46)
[2017-10-24] MEDS: AZITHROMYCIN IV 500 MG in DEXTROSE 5% 250ML 250 ML IV SCH (18:46)
[2017-10-24] MEDS: MOMETASONE FUROATE 14 PUFF/1 INHALER INH SCH (20:11)
[2017-10-24] MEDS: PANTOprazole SOD 40 MG TAB PO SCH (20:12)
[2017-10-24] MEDS: SIMVASTATIN 40 MG TAB PO SCH (20:17)
[2017-10-24] MEDS ORDERED: DILTIAZEM BOLUS / DRIP IV STA (22:21)
[2017-10-24] MEDS ORDERED: ENOXAPARIN 40 MG/0.4 ML SYR SQ ONE (23:00)
[2017-10-24] MEDS ORDERED: DILTIAZEM HCL INJ 10 MG in SYRINGE 0 ML IV ONE (23:00)
[2017-10-24] MEDS: DILTIAZEM HCL INJ 125 MG in DEXTROSE 5% 100ML IV PRN (23:06)
[2017-10-25] VITALS (8 sets, daily range): BP systolic 96–131; BP diastolic 63–82; PULSE 70–81; TEMP 36.5–37.4; O2SAT 90–96
[2017-10-25] MEDS: METRONIDAZOLE / NSS 500 MG in PREMIXED NSS 100 ML IV SCH ×3 (03:51→20:31)
[2017-10-25] MEDS: LEVOTHYROXINE 125 MCG TAB PO SCH (05:33)
[2017-10-25 06:04] LABS: HEMATOCRIT 30.5 % (42-52); HEMOGLOBIN 9.9 g/dL (14.0-18.0); MEAN CELL VOLUME 84.7 fL (80-100); MEAN CORPUSCULAR HEMOGLOBIN 27.5 pg (25-34); MEAN CORPUSCULAR HGB CONC 32.5 g/dl (32-36); MEAN PLATELET VOLUME 10.1 fL (7.4-10.4); PLATELET COUNT 174 K/uL (130-400); RED CELL DISTRIBUTION WIDTH CV 13.6 % (11.5-14.5); RED CELL DISTRIBUTION WIDTH SD 42.4 fL (36.4-46.3)
[2017-10-25 06:47] LABS: CALCIUM 8.1 mg/dl (8.5-10.1); CREATININE 0.99 mg/dl (0.60-1.40); POTASSIUM 3.9 mmol/L (3.5-5.1)
[2017-10-25] MEDS: TAMSULOSIN HCL 0.4 MG CAP PO SCH (07:43)
[2017-10-25] MEDS: PANTOprazole SOD 40 MG TAB PO SCH ×2 (07:43→20:32)
[2017-10-25] MEDS: FLUTICASONE PROPIONATE NA SPR 16 GM BTL NAE SCH (07:43)
[2017-10-25] MEDS: POLYETHYLENE (MIRALAX) 17 GM PACK PO SCH (07:43)
[2017-10-25] MEDS: SODIUM CHLOR 0.45% + 20MEQ KCL 1,000 ML IV SCH (07:45)
--- NOTE | 2017-10-25 08:47 | Hospitalist Progress Note ---
Hospitalist Progress Note Date of Service Oct 25, 2017. (Shweta Silveira PA-C) Subjective Pt evaluation today including: conversation w/ patient, physical exam, chart review, lab review, review of studies Pain: None PO Intake: Good Voiding: no voiding problems Overnight events included converting into afib at 23:40 and lasted until this morning around 0730. The patient was seen and examined this morning. Pt reports doing a little better this morning. He denies knowing that he was in afib last night, and that this actually occurred while he was sleeping. He denies any shortness of breath, palpitations, flutter or headache. Pt notes his breathing is about the same, he still has a nonproductive cough and is requiring 6L of O2. He hasn't been up ambulating out of bed much due to dropping sats. His sore throat is improved. No nasal drainage or nasal discharge. ROS: 6 point ROS reviewed and otherwise negative. (Shweta Silveira PA-C) Objective Vital Signs Date Time Temp Pulse Resp B/P (MAP) Pulse Ox O2 Delivery O2 Flow Rate FiO2 10/25/17 08:04 36.5 70 18 98/66 (77) 96 10/25/17 04:00 Oxymask 6.0 10/25/17 04:00 37.0 77 18 100/73 (82) 94 Oxymask 6.0 10/24/17 23:59 37.0 119 22 110/67 (81) 93 Oxymask 8.0 10/24/17 23:59 Oxymask 8.0 10/24/17 23:19 87 Nasal Cannula 6.0 10/24/17 20:00 Nasal Cannula 5.0 10/24/17 19:53 37.3 84 20 121/72 (88) 94 Nasal Cannula 6.0 10/24/17 16:00 Nasal Cannula 5.0 10/24/17 15:20 36.7 82 20 115/77 (90) 95 Nasal Cannula 6.0 10/24/17 12:17 36.7 82 19 108/78 (88) 97 Nasal Cannula 6.0 10/24/17 12:00 Nasal Cannula 5.0 (Shweta Silveira PA-C) Physical Exam Notes: General Appearance: WD/WN, no apparent distress Eyes: PERRL, EOMI ENT: hearing grossly normal, + pertinent finding (MMM, pharynx without erythema. ) Neck: supple, no JVD Respiratory/Chest: chest non-tender, no accessory muscle use, + pertinent finding (on 6 L O2, coarse breath sounds in the left posterior parks, good breath sounds in the right. +nonproductive cough. ) Cardiovascular: regular rate, rhythm, no murmur Abdomen: normal bowel sounds, non tender, soft Extremities: non-tender, no pedal edema Neurologic/Psychiatric: alert, normal mood/affect, oriented x 3 Skin: normal color, warm/dry (Shweta Silveira PA-C) Laboratory Results Last 24 Hours Test 10/25/17 05:28 White Blood Count 10.10 K/uL Red Blood Count 3.60 M/uL Hemoglobin 9.9 g/dL Hematocrit 30.5 % Mean Corpuscular Volume 84.7 fL Mean Corpuscular Hemoglobin 27.5 pg Mean Corpuscular Hemoglobin Concent 32.5 g/dl RDW Standard Deviation 42.4 fL RDW Coefficient of Variation 13.6 % Platelet Count 174 K/uL Mean Platelet Volume 10.1 fL Sodium Level 139 mmol/L Potassium Level 3.9 mmol/L Chloride Level 109 mmol/L Carbon Dioxide Level 24 mmol/L Anion Gap 6.0 mmol/L Blood Urea Nitrogen 12 mg/dl Creatinine 0.99 mg/dl Est Creatinine Clear Calc Drug Dose 73.7 ml/min Estimated GFR () 90.3 Estimated GFR (Non- 77.9 BUN/Creatinine Ratio 12.1 Random Glucose 104 mg/dl Calcium Level 8.1 mg/dl Magnesium Level 2.1 mg/dl Iron Level 9 mcg/dl Total Iron Binding Capacity 228 mcg/dl Transferrin 184 mg/dl Transferrin % Saturation 3 % Ferritin 87.5 ng/ml (Shweta Silveira PA-C) Assessment and Plan This is a 66 yo M with pmhx of Sepsis related to pneumonia Left sided pneumonia, possible aspiration - Pt presented with hypotension, severe n/v, generalized weakness - Continue on ceftriaxone, azithromycin and flagyl (day #3) - Pt still requiring high rate of NC, 5L with sats at 91% - leukocytosis improving, afebrile overnight - Continue duonebs - Repeat CXR pending status - pt has remote tobacco use hx and family hx of lung carcinoma New onset Afib - Overnight events on tele included converting to afib, started on cardizem gtt , - will stop gtt today since converted back to NSR. - Administered lovenox 40 mg subq overnight, pt now scheduled for lovenox 80 mg Q12H. - Will again reduce to 40 mg daily. - Consider cardiology consult if were to go back into afib, likely transient from acute infectious soure- pt asymptomatic Elevated troponin. - This appears to be demand ischemia due to his hypovolemia and hypoxia as well as increased metabolic stress. - Troponin trended downward - Echo completed on 10/24 -- Conclusions -- * 1. Normal LV size, mild concentric LVH. * 2. Normal LV systolic function. LVEF 55-60%. * 3. Mild RV dilation. Normal RV function. * 4. Aortic vavle sclerosis. Mild to moderate aortic regurgitation. * 5. Borderline dilated ascending aorta, 3.8 cm. * 6. No prior studies for comparison. ? Upper GI bleed/Variceal bleeding? - Pt reports hx of etoh use 1 x weekly with ~ 6 beers. Notes hx of foul taste morning after consumption of etoh, nausea and +/-coffee ground emesis but has not sought out medical attention. He admits to consumption of etoh past Monday and subsequently vomiting - which likely caused aspiration as listed above. Last EGD completed 12/15/[address] Ji showing Hamm and hiatal hernia, no erosions, normal duodenum. - Will increase protonix to BID - Hgb 9.9 down from 12, possibly dilutional with IVFs running at 125 mL/hr. - stop fluids - Had stopped DVT ppx yesterday afternoon but now in new onset afib, see above. Iron deficiency Anemia - Start iron supplementation with iron panel showing iron def anemia with all lows. Ferritin likely normal only because of acute phase reactant to pneumonia and falsely elevated. Hypotension - improving - Likely from dehydration - will d/c fluids as pt tolerating PO intake well Acute renal failure - Resolved - same as above with the hypotension, follow with rehydration. - Cr. improved today to 0.99 from 1.8 - on IVFs, likely can slow this down Asthma - Continue his home medications: mometasone furomate inh, allow duonebs as above for pna Hypothyroidism. - Continue levothyroxine 125 mcg daily DVT ppx: lovenox CODE STATUS: FULL CODE Disposition: From home, lives with . Possible d/c in 2 days. (Shweta Silveira, DARWIN) Attending Attestation: Pt seen/examined, chart reviewed, care plan d/w RUPERT Silveira. I agree w/ the zapata components of her documentation. Asymptomatic a. fib with RVR overnight requiring diltiazem drip. Spontaneously converted early this AM. He feels slightly improved from previous; still no appetite. VSS, no fever o2 sats acceptable gen - nontoxic, NAD neck - minimal JVD present mouth - MMM heart - RRR, s1, s2 lungs - diffuse crackles left ant chest, left posterior chest; scant end-exp wheeze b/l, scant crackle right base abd - soft, NT ext - no edema A/P: 1. sepsis 2nd to left-sided pneumonia - afebrile, wbc count has normalized, blood cx's neg, slowly improving 2. left-sided pneumonia, community-acquired vs aspiration - slowly improving, and expect slow progress due to extent of the pneumonia on left; slightly more wheeze and crackle today - check cxr, r/o developing CHF in setting of PAF cont rocephin, zithromax, and flagyl (for anaerobe coverage) - day #3 of abx 3. acute hypoxic resp failure 2nd to #2 - stable 4. acute renal failure 2nd to #1, #2 - improved/resolved; stop fluids 5. +troponin - myocardial demand ischemia - echo with normal EF and normal LV wall motion 6. mild anemia, dark appearing stools - iron studies c/w iron def - begin supplementation; GI consult after d/c; awaiting fecal occult blood 7. h/o Hamm's esophagus - PPI twice daily 8. PAF - resolved; CHADsVASC score is 1 - anticoagulation probably advised, but in light of #6 will hold off at this time; continue telemetry 9. asthma, with probable mild/moderate exacerbation - start steroids; cont nebs , incentive mino, etc and son extensively updated at bedside this afternoon PT, OT when able Ricki SZYMANSKI MD (Kit Szymanski MD)
[2017-10-25] MEDS: ASPIRIN 81 MG ECTAB PO SCH (09:00)
[2017-10-25] MEDS ORDERED: ENOXAPARIN 80 MG/0.8 ML SYR SQ SCH (10:00)
[2017-10-25] MEDS: DILTIAZEM HCL INJ 125 MG in DEXTROSE 5% 100ML IV PRN (12:43)
--- NOTE | 2017-10-25 15:41 | DIAGNOSTIC IMAGING REPORT ---
CHEST 2 VIEWS ROUTINE CLINICAL HISTORY: Left-sided pneumonia COMPARISON STUDY: 10/23/2017 FINDINGS: The cardiac and mediastinal contours remain stable. There are extensive left lung airspace opacities, again consistent with pneumonia. The right lung remains generally clear. There is a trace left pleural effusion.[ IMPRESSION: Persistent extensive left lung airspace opacities consistent with pneumonia. Trace left pleural effusion. Radiographic follow-up is recommended. Electronically signed by: Johnson Moya M.D. 10/25/2017 3:40 PM Dictated Date/Time: 10/25/2017 3:39 PM
[2017-10-25] MEDS: FERROUS SULFATE 325 MG TAB PO SCH (16:53)
[2017-10-25] MEDS: CEFTRIAXONE SOD INJ 1 GM in DEXTROSE 5% ADD-VANTAGE 50ML 50 ML IV SCH (16:53)
[2017-10-25] MEDS: AZITHROMYCIN IV 500 MG in DEXTROSE 5% 250ML 250 ML IV SCH (17:49)
[2017-10-25] MEDS: MOMETASONE FUROATE 14 PUFF/1 INHALER INH SCH (20:32)
[2017-10-25] MEDS: SIMVASTATIN 40 MG TAB PO SCH (20:32)
[2017-10-25] MEDS: METHYLPREDNISOLONE IV 40 MG in SYRINGE 0 ML IV SCH (20:32)
[2017-10-26] VITALS (7 sets, daily range): BP systolic 110–135; BP diastolic 69–86; PULSE 77–81; TEMP 36.5–37.1; O2SAT 94–97
[2017-10-26] MEDS: METRONIDAZOLE / NSS 500 MG in PREMIXED NSS 100 ML IV SCH ×3 (04:11→20:36)
[2017-10-26] MEDS: LEVOTHYROXINE 125 MCG TAB PO SCH (05:18)
[2017-10-26 05:55] LABS: HEMATOCRIT 31.5 % (42-52); HEMOGLOBIN 10.6 g/dL (14.0-18.0); MEAN CELL VOLUME 83.6 fL (80-100); MEAN CORPUSCULAR HEMOGLOBIN 28.1 pg (25-34); MEAN CORPUSCULAR HGB CONC 33.7 g/dl (32-36); MEAN PLATELET VOLUME 9.7 fL (7.4-10.4); PLATELET COUNT 205 K/uL (130-400); RED CELL DISTRIBUTION WIDTH CV 13.6 % (11.5-14.5); RED CELL DISTRIBUTION WIDTH SD 41.5 fL (36.4-46.3); WHITE BLOOD COUNT 5.38 K/uL (4.8-10.8)
[2017-10-26 06:30] LABS: CREATININE 0.85 mg/dl (0.60-1.40)
[2017-10-26] MEDS: FLUTICASONE PROPIONATE NA SPR 16 GM BTL NAE SCH (07:46)
[2017-10-26] MEDS: POLYETHYLENE (MIRALAX) 17 GM PACK PO SCH (07:46)
[2017-10-26] MEDS: TAMSULOSIN HCL 0.4 MG CAP PO SCH (07:47)
[2017-10-26] MEDS: PANTOprazole SOD 40 MG TAB PO SCH ×2 (07:47→20:27)
[2017-10-26] MEDS: ASPIRIN 81 MG ECTAB PO SCH (07:47)
[2017-10-26] MEDS: FERROUS SULFATE 325 MG TAB PO SCH ×2 (07:47→17:00)
[2017-10-26] MEDS: METHYLPREDNISOLONE IV 40 MG in SYRINGE 0 ML IV SCH ×2 (07:48→20:36)
[2017-10-26] MEDS: ENOXAPARIN 40 MG/0.4 ML SYR SQ SCH (07:48)
[2017-10-26] MEDS ORDERED: ENOXAPARIN 80 MG/0.8 ML SYR SQ SCH (09:00)
--- NOTE | 2017-10-26 13:31 | Hospitalist Progress Note ---
Hospitalist Progress Note Date of Service Oct 26, 2017. (Shweta Silveira PA-C) Subjective Pt evaluation today including: conversation w/ patient, physical exam, chart review, lab review, review of studies Pain: None PO Intake: Good Voiding: no voiding problems The patient was seen and examined this morning. Pt reports doing better today. He is sitting up in bedside chair and states his O2 sats went up 4 points just being upright. He is coughing slightly less, nonproductive, thinks he is less winded with ambulation about the room. He has not been up walking much outside of the room but is feeling like he could. Denies hunt, chest pain, palpitations, flutter, sob, abd pain, n/v/d/c. Pt had BM last evening. ROS: 6 point ROS reviewed and otherwise negative. (Shweta Silveira PA-C) Objective Vital Signs Date Time Temp Pulse Resp B/P (MAP) Pulse Ox O2 Delivery O2 Flow Rate FiO2 10/26/17 13:08 36.8 81 18 97 5.0 10/26/17 12:20 Nasal Cannula 5.0 10/26/17 11:37 36.8 81 18 110/69 (83) 97 10/26/17 08:10 Nasal Cannula 5.0 10/26/17 07:25 37.0 80 18 112/72 (85) 95 10/26/17 04:00 Nasal Cannula 5.0 10/26/17 03:30 37.1 77 25 124/74 (91) 94 Nasal Cannula 5.0 10/26/17 00:00 Nasal Cannula 5.0 10/25/17 23:30 37.2 79 28 127/82 (97) 91 Nasal Cannula 5.0 10/25/17 20:00 92 Nasal Cannula 4.0 10/25/17 19:56 36.7 80 18 131/81 (98) 90 Nasal Cannula 4.0 10/25/17 16:00 94 Nasal Cannula 4.0 10/25/17 15:47 37.4 81 18 129/75 (93) 94 Nasal Cannula 4.0 (Shweta Silveira PA-C) Physical Exam Notes: General Appearance: WD/WN, no apparent distress Eyes: PERRL, EOMI ENT: hearing grossly normal, + pertinent finding (MMM, pharynx without erythema. ) Neck: supple, no JVD Respiratory/Chest: chest non-tender, no accessory muscle use, + pertinent finding (on 4 L O2 with sats of 94%, coarse breath sounds in the left posterior parks sound better, good breath sounds in the right. +nonproductive cough. ) Cardiovascular: regular rate, rhythm, no murmur Abdomen: normal bowel sounds, non tender, soft Extremities: non-tender, no pedal edema Neurologic/Psychiatric: alert, normal mood/affect, oriented x 3 Skin: normal color, warm/dry (Shweta Silveira, JOSÉC) Laboratory Results Last 24 Hours Test 10/26/17 05:23 White Blood Count 5.38 K/uL Red Blood Count 3.77 M/uL Hemoglobin 10.6 g/dL Hematocrit 31.5 % Mean Corpuscular Volume 83.6 fL Mean Corpuscular Hemoglobin 28.1 pg Mean Corpuscular Hemoglobin Concent 33.7 g/dl RDW Standard Deviation 41.5 fL RDW Coefficient of Variation 13.6 % Platelet Count 205 K/uL Mean Platelet Volume 9.7 fL Creatinine 0.85 mg/dl Est Creatinine Clear Calc Drug Dose 85.9 ml/min Estimated GFR () 103.8 Estimated GFR (Non- 89.5 (Shweta Silveira, RUPERT-C) Assessment and Plan This is a 66 yo M with pmhx of Sepsis related to pneumonia Left sided pneumonia, possible aspiration - Pt presented with hypotension, severe n/v, generalized weakness - resolved now - Continue on ceftriaxone, azithromycin and flagyl (day #4) - O2 sats improving, I decreased O2 at bedside to 4L with sats at 94% - wean as tolerated - leukocytosis improving, afebrile overnight - Continue duonebs - Repeat CXR pending status- pt improving so not needed currently- pt has remote tobacco use hx and family hx of lung carcinoma - Solumedrol 40 mg Q12H started 10/25, continue for now, likely can switch to PO prednisone tomorrow New onset Afib- Resolved - Broke into afib on 10/24 included - was started on cardizem gtt - converted on and cardizem gtt off. Pt has remained in NSR since then. - Lovenox 40 subq daily - Consider cardiology consult if were to go back into afib, likely transient from acute infectious soure- pt asymptomatic Elevated troponin. - This appears to be demand ischemia due to his hypovolemia and hypoxia as well as increased metabolic stress. - Troponin trended downward - Echo completed on 10/24 -- Conclusions -- * 1. Normal LV size, mild concentric LVH. * 2. Normal LV systolic function. LVEF 55-60%. * 3. Mild RV dilation. Normal RV function. * 4. Aortic vavle sclerosis. Mild to moderate aortic regurgitation. * 5. Borderline dilated ascending aorta, 3.8 cm. * 6. No prior studies for comparison. ? Upper GI bleed/Variceal bleeding? - Pt reports hx of etoh use 1 x weekly with ~ 6 beers. Notes hx of foul taste morning after consumption of etoh, nausea and +/-coffee ground emesis but has not sought out medical attention. He admits to consumption of etoh past Monday and subsequently vomiting - which likely caused aspiration as listed above. Last EGD completed 12/15/[address] Ji showing Hamm and hiatal hernia, no erosions, normal duodenum. - Cont protonix to BID - Hgb 10.6, IVFs off. - Pt has f/u with PCP within ~ 1 week and is planning on having EGD and colonoscopy soon. Iron deficiency Anemia - Start iron supplementation with iron panel showing iron def anemia with all lows. Ferritin likely normal only because of acute phase reactant to pneumonia and falsely elevated. Hypotension - Resolved - Likely from dehydration - Off IVF, tolerating PO intake Acute renal failure - Resolved - same as above with the hypotension, follow with rehydration. - Cr. improved today to 0.86 from 1.8 at time of admission Asthma - Continue his home medications: mometasone furomate inh, allow duonebs as above for pna Hypothyroidism. - Continue levothyroxine 125 mcg daily DVT ppx: lovenox CODE STATUS: FULL CODE Disposition: From home, lives with . Possible d/c in 1 day, move off tele to med surg (Shweta Silveira PA-C) PA Physician Supervision Note: I interviewed and examined the patient. Discussed with Shweta Silveira PAC and agree with findings and plan as documented in the note. Any exceptions or clarifications are listed here: None Patient admitted with pneumonia with concern for aspiration he is done him much better over the last 24 hours is sitting in a chair weaning his oxygen down awake alert and oriented Vitals are stable exception of his need for oxygen His lung exam have bilateral decreased breath sounds at the bases right greater than left with some rales at the left Treatment for pneumonia and concern for aspiration, on azithromycin metronidazole and ceftriaxone. Initiated on steroids for inflammation has improved his oxygenation, continue aggressive treatment and encourage ambulation and incentive spirometry Documented By: Guido Baltazar (Guido Baltazar M.D.)
[2017-10-26] MEDS: CEFTRIAXONE SOD INJ 1 GM in DEXTROSE 5% ADD-VANTAGE 50ML 50 ML IV SCH (17:00)
[2017-10-26] MEDS: AZITHROMYCIN IV 500 MG in DEXTROSE 5% 250ML 250 ML IV SCH (17:09)
[2017-10-26] MEDS: SIMVASTATIN 40 MG TAB PO SCH (20:27)
[2017-10-26] MEDS: MOMETASONE FUROATE 14 PUFF/1 INHALER INH SCH (20:28)
[2017-10-27] VITALS: O2SAT 95
[2017-10-27 00:17] VITALS: BP 136/84; PULSE 85; TEMP 36.5; O2SAT 91
[2017-10-27] MEDS: METRONIDAZOLE / NSS 500 MG in PREMIXED NSS 100 ML IV SCH ×3 (03:39→20:24)
[2017-10-27] MEDS: LEVOTHYROXINE 125 MCG TAB PO SCH (06:11)
[2017-10-27 07:48] VITALS: BP 128/77; PULSE 73; TEMP 36.8; O2SAT 92
--- NOTE | 2017-10-27 08:17 | Hospitalist Progress Note ---
Hospitalist Progress Note Date of Service Oct 27, 2017. (Shweta Silveira PA-C) Subjective Pt evaluation today including: conversation w/ patient, physical exam, chart review, lab review, review of studies Pain: None PO Intake: Good Voiding: no voiding problems The patient was seen and examined this morning. Pt reports doing much better today than previously. Breathing has improved, although last night nursing attempted to wean him off O2 and was unable to. He currently is still on 4L and this was recently turned down from 5L. I have asked him to get up and walk a little more today, and nursing is aware to do a 2-step with him to see how he does. He admits to a cough with minor yellow sputum production. He denies any fever, chills or sweats. Pt denies any chest pain, palpitations, headache of chest tightness. ROS: 6 point ROS reviewed and otherwise negative. (Shweta Silveira PA-C) Objective Vital Signs Date Time Temp Pulse Resp B/P (MAP) Pulse Ox O2 Delivery O2 Flow Rate FiO2 10/27/17 07:48 36.8 73 18 128/77 (94) 92 Nasal Cannula 4.0 10/27/17 00:17 36.5 85 20 136/84 (101) 91 Nasal Cannula 4.0 10/27/17 00:00 95 Nasal Cannula 4.0 10/26/17 16:00 95 Nasal Cannula 4.0 10/26/17 15:14 36.5 78 18 135/86 (102) 95 Nasal Cannula 4.0 10/26/17 13:08 36.8 81 18 97 5.0 10/26/17 12:20 Nasal Cannula 5.0 10/26/17 11:37 36.8 81 18 110/69 (83) 97 10/26/17 11:10 94 (Shweta Silveira PA-C) Physical Exam Notes: General Appearance: WD/WN, no apparent distress Eyes: PERRL, EOMI ENT: hearing grossly normal, + pertinent finding (MMM, pharynx without erythema. ) Neck: supple, no JVD Respiratory/Chest: chest non-tender, no accessory muscle use, + pertinent finding (on 4 L O2, Left parks with improved aeration but still slightly diminished at base, + crackles up the mid field, no rales. Good breath sounds in the right. +cough with mild yellow sputum production) Cardiovascular: regular rate, rhythm, no murmur Abdomen: normal bowel sounds, non tender, soft Extremities: non-tender, no pedal edema Neurologic/Psychiatric: alert, normal mood/affect, oriented x 3 Skin: normal color, warm/dry (Shweta Silveira, DARWIN) Assessment and Plan This is a 66 yo M with pmhx of Sepsis related to pneumonia Left sided pneumonia, possible aspiration - Pt presented with hypotension, severe n/v, generalized weakness - resolved now - Continue on ceftriaxone, azithromycin and flagyl (day #5) - will finish azithro course tonight. - Remains on 4L with sats at 94% - nursing asked to walk with the patient and see how O2 sats maintain with ambulation - - leukocytosis improving, afebrile overnight - Continue duonebs - Repeat CXR pending status- pt improving so not needed currently- pt has remote tobacco use hx and family hx of lung carcinoma - Solumedrol 40 mg Q12H started 10/25, will allow last dose of IV tonight and decrease to PO prednisone 60 mg tomorrow. New onset Afib- Resolved - Broke into afib on 10/24 included - was started on cardizem gtt - converted on and cardizem gtt off. Pt has remained in NSR since then. - Lovenox 40 subq daily - Consider cardiology consult if were to go back into afib, likely transient from acute infectious soure- pt asymptomatic Elevated troponin. - This appears to be demand ischemia due to his hypovolemia and hypoxia as well as increased metabolic stress. - Troponin trended downward - Echo completed on 10/24 -- Conclusions -- * 1. Normal LV size, mild concentric LVH. * 2. Normal LV systolic function. LVEF 55-60%. * 3. Mild RV dilation. Normal RV function. * 4. Aortic vavle sclerosis. Mild to moderate aortic regurgitation. * 5. Borderline dilated ascending aorta, 3.8 cm. * 6. No prior studies for comparison. ? Upper GI bleed/Variceal bleeding? - Pt reports hx of etoh use 1 x weekly with ~ 6 beers. Notes hx of foul taste morning after consumption of etoh, nausea and +/-coffee ground emesis but has not sought out medical attention. He admits to consumption of etoh past Monday and subsequently vomiting - which likely caused aspiration as listed above. Last EGD completed 12/15/[address] Ji showing Hamm and hiatal hernia, no erosions, normal duodenum. - Cont protonix to BID - Hgb 10.6, IVFs off. - Pt has f/u with PCP within ~ 1 week and is planning on having EGD and colonoscopy soon. Iron deficiency Anemia - Start iron supplementation with iron panel showing iron def anemia with all lows. Ferritin likely normal only because of acute phase reactant to pneumonia and falsely elevated. Hypotension - Resolved - Likely from dehydration - Off IVF, tolerating PO intake Acute renal failure - Resolved - same as above with the hypotension, follow with rehydration. - Cr. improved today to 0.86 from 1.8 at time of admission Asthma - Continue his home medications: mometasone furomate inh, allow duonebs as above for pna Hypothyroidism. - Continue levothyroxine 125 mcg daily DVT ppx: lovenox CODE STATUS: FULL CODE Disposition: From home, lives with . Possible d/c tomorrow. (Shweta Silveira, DARWIN) PA Physician Supervision Note: I interviewed and examined the patient. Discussed with Shweta Silveira PAC and agree with findings and plan as documented in the note. Any exceptions or clarifications are listed here: None This patient continues to clinically improve but still has a significant oxygen requirement and note from case management and states the patient will require two-step oxygen test prior to going home of oxygen revealed required at home. The patient does have some environmental in personal smoke exposure and his stubborn hypoxia may be related to some undiagnosed COPD changes with his lungs. Patient will continue to be supplemented treating his left lower lobe pneumonia history and atrial fibrillation is not recurred Vital signs are stable with exception of hypoxia requiring oxygen supplementation Cardiac exam is regular with no murmurs lungs are clear with exception of a focal air loss down in the left lower lobe consistent appeared pneumonia seen on chest x-ray there is no egophony or increased fremitus Left lower lobe pneumonia and persistent hypoxia continue antibiotic care concerns from treatment ambulation the patient may require transfusion home oxygen while he recuperates Documented By: Guido E CovalesGuido Yang M.D.
[2017-10-27] MEDS: PANTOprazole SOD 40 MG TAB PO SCH ×2 (08:32→20:24)
[2017-10-27] MEDS: ENOXAPARIN 40 MG/0.4 ML SYR SQ SCH (08:32)
[2017-10-27] MEDS: FERROUS SULFATE 325 MG TAB PO SCH ×2 (08:32→17:58)
[2017-10-27] MEDS: ASPIRIN 81 MG ECTAB PO SCH (08:32)
[2017-10-27] MEDS: FLUTICASONE PROPIONATE NA SPR 16 GM BTL NAE SCH ×2 (08:33→10:27)
[2017-10-27] MEDS: METHYLPREDNISOLONE IV 40 MG in SYRINGE 0 ML IV SCH ×2 (08:33→20:25)
[2017-10-27] MEDS: TAMSULOSIN HCL 0.4 MG CAP PO SCH (08:33)
[2017-10-27] MEDS: POLYETHYLENE (MIRALAX) 17 GM PACK PO SCH (08:34)
[2017-10-27 14:38] VITALS: BP 134/88; PULSE 82; TEMP 37; O2SAT 95
--- NOTE | 2017-10-27 15:11 | Discharge Instructions ---
Discharge Instructions Date of Service Oct 28, 2017. Admission Reason for Admission: Pneumonia Discharge Discharge Diagnosis / Problem: Aspiration pneumonia Discharge Goals Goal(s): Decrease discomfort, Improve function, Increase independence, Improve disease control Activity Recommendations Activity Limitations: resume your previous activity Lifting Limitations: no more than 25 pounds, gradually increase as tolerated Exercise/Sports Limitations: rest today, gradually increase as tolerated May Resume Sexual Activity: when tolerated Shower/Bathe: no limitations Driving or Machine Use: no limitations . Instructions / Follow-Up Instructions / Follow-Up You were admitted to [facility] with aspiration pneumonia and diagnosed with the same. During your stay here you were treated with intravenous antibiotics, steroids, and other supportive care. Imaging studies which were completed include: 1. CXR, and were abnormal showing the pneumonia. 2. A CT of the chest was completed showing improvement in pneumonia - but this will require close follow up by your PCP Aspiration was likely due to drinking alcohol. Do Not drink alcohol! - If your cough worsens, you become more short of breath, develop fever/ chills/sweats, you should call your PCP immediately or return to the ER. - Continue taking antibiotics and the steroid taper as directed below. - You have been set up with home supplemental oxygen. Wear 2 L with exertion /activity. - Please be cautious and monitor for any vomiting which appears coffee ground , black or with red blood streaking. - Ask you PCP at next follow up appointment to schedule a routine upper endoscopy and colonoscopy. During admission your heart rate became irregular- this is known as Atrial Fibrillation. - You converted back into a normal heart rhythm with intravenous medication. - This was due to your acute infection with pneumonia and did not require further medical management. Medications: You finished a course of azithromycin while in the hospital. Continue taking clindamycin 150 mg every 6 hours as directed x 10 more days. Continue prednisone taper as described 60 mg x 1 more day 40 mg x 2 days 20 mg x 2 days then stop. Finish on 11/02/17. Appointments: Follow up with your Primary Care Provider within 1 week, an appointment has been requested for you for an earlier date than your previously scheduled routine visit. - Discuss endoscopy and colonoscopy at this appointment. Current Hospital Diet Patient's current hospital diet: Regular Diet Discharge Diet Recommended Diet: Regular Diet Pending Studies Studies pending at discharge: no Medical Emergencies . Who to Call and When: Medical Emergencies: If at any time you feel your situation is an emergency, please call 911 immediately. . Non-Emergent Contact Non-Emergency issues call your: Primary Care Provider Call Non-Emergent contact if: you have a fever, your pain is not controlled, your pain is worsening, your pain is unusual for you, your pain is concerning you, you have any medication questions other concerns with your health. Call 911 or go directly to the Emergency Department if you experience any of the following: Chest pain, chest tightness, shortness of breath, abdominal pain , lightheadedness, dizziness, gastrointestinal bleeding, or have any other concerns regarding your health. . . "Provider Documentation" section prepared by Oksana Silveira. . VTE Core Measure Inpt VTE Proph given/why not?: Enoxaparin (Lovenox)SQ
[2017-10-27] MEDS: CEFTRIAXONE SOD INJ 1 GM in DEXTROSE 5% ADD-VANTAGE 50ML 50 ML IV SCH (17:58)
[2017-10-27] MEDS: AZITHROMYCIN IV 500 MG in DEXTROSE 5% 250ML 250 ML IV SCH (18:43)
[2017-10-27] MEDS: MOMETASONE FUROATE 14 PUFF/1 INHALER INH SCH (20:25)
[2017-10-27] MEDS: SIMVASTATIN 40 MG TAB PO SCH (20:26)
[2017-10-27 23:13] VITALS: BP 153/94; PULSE 74; TEMP 36.7; O2SAT 92
[2017-10-28] VITALS: O2SAT 95
[2017-10-28] MEDS: METRONIDAZOLE / NSS 500 MG in PREMIXED NSS 100 ML IV SCH ×2 (03:39→13:42)
[2017-10-28] MEDS: LEVOTHYROXINE 125 MCG TAB PO SCH (07:08)
[2017-10-28 07:39] VITALS: BP 152/80; PULSE 71; TEMP 36.8; O2SAT 90
[2017-10-28] MEDS: FERROUS SULFATE 325 MG TAB PO SCH (07:55)
[2017-10-28] MEDS: FLUTICASONE PROPIONATE NA SPR 16 GM BTL NAE SCH (07:55)
[2017-10-28] MEDS: ASPIRIN 81 MG ECTAB PO SCH (07:55)
[2017-10-28] MEDS: PANTOprazole SOD 40 MG TAB PO SCH (07:56)
[2017-10-28] MEDS: TAMSULOSIN HCL 0.4 MG CAP PO SCH (07:56)
[2017-10-28] MEDS: ENOXAPARIN 40 MG/0.4 ML SYR SQ SCH (07:56)
[2017-10-28] MEDS: POLYETHYLENE (MIRALAX) 17 GM PACK PO SCH (07:57)
[2017-10-28 08:00] VITALS: O2SAT 90
[2017-10-28] MEDS ORDERED: OPTIRAY 320 IV PRN (09:15)
--- NOTE | 2017-10-28 10:39 | DIAGNOSTIC IMAGING REPORT ---
(CHEST) THORAX WITHOUT CLINICAL HISTORY: Pneumonia. COMPARISON STUDY: Chest x-ray dated 10/25/2017 CT DOSE: 306.06 mGy.cm TECHNIQUE: CT of the thorax was performed from the thoracic inlet to the lung bases. Images are reviewed in the axial, sagittal, and coronal planes. IV contrast was not administered for this examination. A dose lowering technique was utilized adhering to the principles of ALARA. FINDINGS: Thyroid: Imaged portions of the thyroid gland are normal in appearance. Thoracic aorta: There is mild dilatation of the ascending thoracic aorta which measures 43 mm. Heart: There are coronary artery calcifications present. Lungs and pleural spaces: There is a [id number] left pleural effusion. There are diffuse predominantly groundglass left lung airspace opacities, likely representing a pneumonia. There is a 3 mm solid right upper lobe pulmonary nodule as visualized in image #[id number]. Mediastinum: There are mildly enlarged mediastinal lymph nodes measuring up to 11 mm in short axis. These are likely reactive given the extensive left lung airspace opacities [place]: Mildly prominent left hilar lymph nodes are suspected. Axilla: There is no evidence of pathologic axillary lymphadenopathy Upper abdomen: There is a hiatal hernia. Skeletal structures: There are several thoracic compression deformities which appear old. IMPRESSION: 1. Brqyi-[id number] left pleural effusion 2. Diffuse, probably groundglass, left lung airspace opacities, likely representing a pneumonia. Films subsequent to treatment are recommended in follow-up 3. Mild mediastinal lymphadenopathy 4. Dilatation of the ascending thoracic aorta which measures 43 mm Electronically signed by: Johnson Moya M.D. 10/28/2017 10:38 AM Dictated Date/Time: 10/28/2017 10:33 AM
[2017-10-28] MEDS ORDERED: MRLP17 PO (12:26)
[2017-10-28] MEDS ORDERED: CLIN150C PO (12:26)
[2017-10-28] MEDS ORDERED: FRRS300 PO (12:26)
[2017-10-28] MEDS ORDERED: PRD20 PO (12:26)
--- NOTE | 2017-10-28 12:49 | Discharge Summary ---
Discharge Summary Date of Service Oct 28, 2017. Discharge Summary Admission Date: Oct 23, 2017 at 15:30 Discharge Date: Oct 28, 2017 Discharge Disposition: Home Principal Diagnosis: Left sided Pneumonia Problems/Secondary Diagnoses: Medical Problems: (1) Hypomagnesemia (2) Hypotension (3) Hypoxia (4) Pneumonia (5) Hypothyroidism (6) Asthma Social History Problems: (1) Alcohol use Procedures: SINGLE VIEW CHEST 10/23/17 IMPRESSION: Patchy airspace consolidation is seen throughout the left lung and there is a small left pleural effusion. The appearance is typical for pneumonia. Radiographic follow-up to resolution is recommended.. CHEST 2 VIEWS ROUTINE IMPRESSION: Persistent extensive left lung airspace opacities consistent with pneumonia. Trace left pleural effusion. Radiographic follow-up is recommended. (CHEST) THORAX WITHOUT 10/28/16 FINDINGS: Thyroid: Imaged portions of the thyroid gland are normal in appearance. Thoracic aorta: There is mild dilatation of the ascending thoracic aorta which measures 43 mm. Heart: There are coronary artery calcifications present. Lungs and pleural spaces: There is a ewavv-[id number] left pleural effusion. There are diffuse predominantly groundglass left lung airspace opacities, likely representing a pneumonia. There is a 3 mm solid right upper lobe pulmonary nodule as visualized in image #[id number]. Mediastinum: There are mildly enlarged mediastinal lymph nodes measuring up to 11 mm in short axis. These are likely reactive given the extensive left lung airspace opacities [place]: Mildly prominent left hilar lymph nodes are suspected. Axilla: There is no evidence of pathologic axillary lymphadenopathy Upper abdomen: There is a hiatal hernia. Skeletal structures: There are several thoracic compression deformities which appear old. IMPRESSION: 1. Jzqus-cf-yvazlerg left pleural effusion 2. Diffuse, probably groundglass, left lung airspace opacities, likely representing a pneumonia. Films subsequent to treatment are recommended in follow-up 3. Mild mediastinal lymphadenopathy 4. Dilatation of the ascending thoracic aorta which measures 43 mm Consultations: None Medication Reconciliation New Medications: Clindamycin Hcl (Cleocin) 150 Mg Cap 1 CAP PO QID for 10 Days, #40 CAP Ferrous Sulfate (Ferrous Sulfate) 325 Mg Tab 325 MG PO BIDM for 30 Days, #60 TAB Polyethylene (Miralax) 17 Gm Pow 17 GM PO DAILY for 30 Days, #30 DOSE Prednisone (Prednisone) 20 Mg Tab 60 MG PO QAM for 5 Days, #9 TAB Take 60 mg (3 tabs) x 1 day, 40 mg (2 tabs) x 2 days, then 20 mg (1 tab) x 2 days. Finish on 11/02. Continued Medications: Aspirin (Aspirin Ec) 325 Mg Tab 162.5 MG PO DAILY Fluticasone Propionate (Nasal) (Allergy Nasal [place] 24 Ho) 50 Mcg/Act Spr 2 SPRAYS TANVIR DAILY Levothyroxine Sodium (Synthroid) 125 Mcg Tab 125 MCG PO DAILY, TAB Mometasone Furoate (Inhalation (Asmanex Hfa) 100 Mcg/Act Aer 1 PUFF INH QPM Omeprazole (Prilosec) 40 Mg Cap 40 MG PO DAILY, CAP Simvastatin (Zocor) 40 Mg Tab 40 MG PO QPM, TAB Tamsulosin Hcl (Flomax) 0.4 Mg Cap 0.4 MG PO DAILY, CAP Discontinued Medications: Psyllium (Metamucil) 0.52 Gm Cap DAILY Discharge Exam The patient was seen and examined this morning. Pt reports feeling much better today. He is still requiring oxygen but reports says this has already been delivered to his home. Pt notes he is slightly short of breath with exertion but that this is also improved. He has minimal sputum production. No fever, chills or sweats. He is hopeful for discharge to home today. Review of Systems: Constitutional: No fever, No chills, No sweats, No fatigue Eyes: No redness, No diplopia ENT: No hearing loss, No nasal symptoms Respiratory: + cough, + dyspnea on exertion, No wheezing, No dyspnea at rest Cardiovascular: No chest pain, No edema Abdomen: No pain, No nausea, No vomiting, No diarrhea, No constipation Musculoskeletal: No joint pain, No swelling Neurologic: No memory loss, No numbness/tingling Endocrine: No fatigue Hospital Course HISTORY OF PRESENT ILLNESS: The patient is a pleasant 66-year-old male who presents after having had nausea, vomiting, and diarrhea all day yesterday and fatigue and shortness of breath today. He was in his usual state of health Monday, they went out to dinner, he did have some indigestion and reflux afterwards; however, he threw up, a good day yesterday and had diarrhea all day yesterday and 3 today. He was feeling weak, fatigued, even a little bit out of it mentally and in hindsight notes dyspnea on exertion, although with foresight he felt that was just extreme fatigue from being so dehydrated. He has not had fevers, chills, or sweats. He does not have chest pain or cough. PHYSICAL EXAMINATION: VITAL SIGNS: Temp 36.6, pulse 120, blood pressure 83/58. He is initially listed as 96% on room air, but I believe he was actually 85% on room air. GENERAL: He is awake, alert, oriented x3, very-fatigued appearing but otherwise in no acute distress. HEENT: Normocephalic, atraumatic. Mucous membranes are moist. CARDIOVASCULAR: Slightly tachycardic. No rubs, murmurs, or gallops. LUNGS: Show left sided diminished air entry and scattered rales and the right is fairly clear. No rhonchi or wheezes. No accessory muscle use. Good effort. ABDOMEN: Soft, nondistended, nontender, no masses or organomegaly. EXTREMITIES: Without cyanosis, clubbing or edema. No calf tenderness. SKIN: Shows no rashes, no pallor or icterus. MENTAL STATE: Shows good recent and remote recall. Normal mood and affect. Good judgment and insight. MUSCULOSKELETAL: Yields no gross lesions. Hospital Course: This is a 66 yo M with pmhx of Sepsis related to pneumonia Left sided pneumonia, possible aspiration - Pt presented with hypotension, severe n/v, generalized weakness - resolved now - Continue on ceftriaxone, azithromycin and flagyl (day #6) - will finish azithro course on 10/27. Will continue on clinda 150 mg QID x 10 more days to allow for time for PCP to follow up due to large pneumonia. -O2 weaned down to 2 L at 94 % - 2 step completed and pt will be discharged with home o2. - leukocytosis improving, afebrile overnight - Continue duonebs - Repeat CXR pending status- pt improving so not needed currently- pt has remote tobacco use hx and family hx of lung carcinoma - Solumedrol weaned to PO prednisone 60 mg (day 2) continue taper x next 5 days as per discharge instructions. Finish on 11/02. New onset Afib- Resolved - Broke into afib on 10/24 included - was started on cardizem gtt - converted on and cardizem gtt off. Pt has remained in NSR since then. - Lovenox 40 subq daily while in hospital - likely transient from acute infectious soure- pt asymptomatic Elevated troponin. - This appears to be demand ischemia due to his hypovolemia and hypoxia as well as increased metabolic stress. - Troponin trended downward - Echo completed on 10/24 -- Conclusions -- * 1. Normal LV size, mild concentric LVH. * 2. Normal LV systolic function. LVEF 55-60%. * 3. Mild RV dilation. Normal RV function. * 4. Aortic vavle sclerosis. Mild to moderate aortic regurgitation. * 5. Borderline dilated ascending aorta, 3.8 cm. * 6. No prior studies for comparison. ? Upper GI bleed/Variceal bleeding? - Pt reports hx of etoh use 1 x weekly with ~ 6 beers. Notes hx of foul taste morning after consumption of etoh, nausea and +/-coffee ground emesis but has not sought out medical attention. He admits to consumption of etoh past Monday and subsequently vomiting - which likely caused aspiration as listed above. Last EGD completed 12/15/[address] Ji showing Hamm and hiatal hernia, no erosions, normal duodenum. - Cont protonix to BID - Hgb 10.6, IVFs off. - Pt has f/u with PCP within ~ 1 week and is planning on having EGD and colonoscopy soon. Iron deficiency Anemia - Start iron supplementation with iron panel showing iron def anemia with all lows. Ferritin likely normal only because of acute phase reactant to pneumonia and falsely elevated. Hypotension - Resolved - Likely from dehydration - Off IVF, tolerating PO intake Acute renal failure - Resolved - same as above with the hypotension, follow with rehydration. - Cr. improved today to 0.86 from 1.8 at time of admission Asthma - Continue his home medications: mometasone furomate inh, allow duonebs as above for pna - Continue prednisone taper and antibiotics above for pneumonia Hypothyroidism. - Continue levothyroxine 125 mcg daily DVT ppx: lovenox CODE STATUS: FULL CODE Disposition: From home, lives with . Discharge to home today PA Physician Supervision Note: I interviewed and examined the patient. Discussed with Shweta Silveira PAC and agree with findings and plan as documented in the note. Any exceptions or clarifications are listed here: None Patient is discharged today after CT scan revealed some pneumonia and only a mild pleural effusion with no concern for empyema his oxygen evaluation prior to leaving showed in the be improved at rest with saturations above 90% but to desaturate with ambulation. The patient denied a long discussion about his need for oxygen and follow up likely with pulmonary medicine. Signed vital signs remained stable with exception of requiring oxygen supplementation with ambulation his lungs show improved aeration to the left lung with still some crackles especially at the base Patiently discharged home on course of oral clindamycin with prednisone taper and both iron and laxative medicines he is strongly suggested to not take alcohol have close follow-up his primary care physician's considering pulmonary consultation Documented By: Guido Baltazar. Total Time Spent: Greater than 30 minutes This includes examination of the patient, discharge planning, medication reconciliation, and communication with other providers. Discharge Instructions Please refer to the electronic Patient Visit Report (Discharge Instructions) for additional information. Follow-Up Follow up with your Primary Care Provider within 1 week. Additional Copies To Yg Ji M.D.
[2017-10-28 13:37] VITALS: BP 152/80; PULSE 71; TEMP 36.8; O2SAT 90
[2017-10-28 13:55] VITALS: O2SAT 90
[2017-10-28 15:14] VITALS: BP 151/92; PULSE 75; TEMP 36.9; O2SAT 95
== END 2017-10-28 15:30 | disposition home or self-care (01) | DRG 871 ==
LOC: C.EDB 13:42 → C.2E 15:30 → ENRESERV 16:20 → CANBEDREQ 10-26 11:13 → ENRESERV 10-26 12:59 → C.4E 10-26 13:24
PROVIDERS: ADMIT Family Medicine; ATTEND Internal Medicine
DX: A41.9 Sepsis, unspecified organism (principal); J18.9 Pneumonia, unspecified organism; I24.8 Other forms of acute ischemic heart disease; N17.9 Acute kidney failure, unspecified; Z79.82 Long term (current) use of aspirin; R20.8 Other disturbances of skin sensation; D64.9 Anemia, unspecified; J45.909 Unspecified asthma, uncomplicated; K21.9 Gastro-esophageal reflux disease without esophagitis; N40.0 Benign prostatic hyperplasia without lower urinary tract symptoms; E06.3 Autoimmune thyroiditis; E78.5 Hyperlipidemia, unspecified; E03.9 Hypothyroidism, unspecified; Z80.1 Family history of malignant neoplasm of trachea, bronchus and lung; E86.1 Hypovolemia; I48.91 Unspecified atrial fibrillation; D50.9 Iron deficiency anemia, unspecified; I95.9 Hypotension, unspecified; K22.70 Barrett's esophagus without dysplasia

== ENCOUNTER → 2017-11-07 | Outpatient (CLI) | payer OTHER ==
[~2017-11-07] MED LIST changes: +CLIN150C PO; -FLUT0.0529 NAE; +FLUT50SP45 NAE; +FRRS300 PO; +LEVO125T72 PO; -LVTUNK PO; +MOME16.7 INH; -MOME220A INH; +MRLP17 PO; -OMEP40CA PO; +OMEP40CA41 PO; +PRD20 PO; -PSYL0.524
[2017-11-07 12:32] LABS: BASO ABS # 0.05 K/uL (0-0.2); EOS % 3.5 %; EOS ABS # 0.18 K/uL (0-0.5); HEMATOCRIT 37.8 % (42-52); HEMOGLOBIN 12.3 g/dL (14.0-18.0); IG# 0.11 K/uL (0.00-0.02); LYMPH % 21.3 %; LYMPH ABS # 1.11 K/uL (1.2-3.4); MEAN CELL VOLUME 86.1 fL (80-100); MEAN CORPUSCULAR HGB CONC 32.5 g/dl (32-36); MEAN PLATELET VOLUME 9.9 fL (7.4-10.4); MONO % 11.3 %; MONO ABS # 0.59 K/uL (0.11-0.59); NEUT % 60.8 %; NEUT ABS # 3.17 K/uL (1.4-6.5); PLATELET COUNT 520 K/uL (130-400); RED CELL DISTRIBUTION WIDTH CV 15.2 % (11.5-14.5); RED CELL DISTRIBUTION WIDTH SD 47.1 fL (36.4-46.3); WHITE BLOOD COUNT 5.21 K/uL (4.8-10.8)
[2017-11-07 12:52] LABS: HEMOGLOBIN A1C 6.1 % (4.5-5.6)
[2017-11-07 13:11] LABS: ALBUMIN 3.2 gm/dl (3.4-5.0); ALT/SGPT 48 U/L (12-78); AST/SGOT 36 U/L (15-37); BLOOD UREA NITROGEN 8 mg/dl (7-18); CALCIUM 8.6 mg/dl (8.5-10.1); CARBON DIOXIDE 26 mmol/L (21-32); CHOLESTEROL 139 mg/dl (0-200); CREATININE 0.84 mg/dl (0.60-1.40); GLUCOSE 99 mg/dl (70-99); POTASSIUM 3.7 mmol/L (3.5-5.1); SODIUM 140 mmol/L (136-145)
[2017-11-07 13:22] LABS: ALKALINE PHOSPHATASE 66 U/L (45-117); LDL CHOLESTEROL CALCULATED 66 mg/dl; TOTAL PROTEIN 6.6 gm/dl (6.4-8.2)
== END | disposition home or self-care (01) ==
LOC: C.LABBFT 09:57
PROVIDERS: ATTEND Internal Medicine
DX: N40.0 Benign prostatic hyperplasia without lower urinary tract symptoms (principal); R73.01 Impaired fasting glucose; E78.00 Pure hypercholesterolemia, unspecified; D72.819 Decreased white blood cell count, unspecified; E03.9 Hypothyroidism, unspecified

== ENCOUNTER → 2017-11-14 | Outpatient (CLI) | payer OTHER ==
[~2017-11-14] MED LIST changes: -CLIN150C PO
--- NOTE | 2017-11-14 12:21 | DIAGNOSTIC IMAGING REPORT ---
ULTRASOUND OF THE THYROID GLAND CLINICAL HISTORY: Multinodular goiter. COMPARISON STUDY: Thyroid ultrasound dated 04/29/2013. TECHNIQUE: Real-time, grayscale, and color flow sonography of the thyroid gland is performed utilizing a high-frequency linear transducer. Images are reviewed in the transverse and longitudinal planes. FINDINGS: Right lobe: The right lobe of the thyroid gland is atrophic and heterogeneous in echotexture, measuring 4.4 x 1.2 x 1.3 cm. A hypoechoic nodule in the upper pole measures 0.9 x 0.5 x 0.5 cm (previously measured 1.2 x 0.7 x 0.7 cm). Left lobe: The left lobe of the thyroid gland is atrophic and heterogeneous in echotexture, measuring 3.5 x 1.5 x 1.5 cm. No left-sided nodule is seen. Isthmus: The thyroid isthmus is mildly atrophic, measuring 0.2 cm in AP diameter. IMPRESSION: 1. The thyroid gland is atrophic and heterogeneous in echotexture. 2. A subcentimeter nodule is identified in the right thyroid lobe. This has decreased in size from 2013. 3. No additional thyroid nodule is seen. Electronically signed by: Sid Bravo M.D. 11/14/2017 12:20 PM Dictated Date/Time: 11/14/2017 12:18 PM
== END | disposition home or self-care (01) ==
LOC: C.ULTR 11:34
PROVIDERS: ATTEND Internal Medicine
DX: E04.1 Nontoxic single thyroid nodule (principal)

== ENCOUNTER → 2017-12-04 | Outpatient (CLI) | payer OTHER ==
[~2017-12-04] MED LIST changes: +ATOR80TA PO; +FLVHFA220 INH; +PSYL0.524 PO; +VNTHFA/IN INH
--- NOTE | 2017-12-04 13:11 | DIAGNOSTIC IMAGING REPORT ---
CHEST 2 VIEWS ROUTINE CLINICAL HISTORY: J18.9 [id number] pneumonia COMPARISON STUDY: 10/25/2017 FINDINGS: Near complete resolution of the left hemithoracic infiltrate. Minimal interstitial residual. Interval development of a patchy angle infiltrate right midlung. Diaphragms remain smooth. IMPRESSION: 1. Mixed findings 2. Near complete resolution of the left hemithoracic infiltrate. 3. Interval development of a patchy parenchymal infiltrate right midlung. The above report was generated using voice recognition software. It may contain grammatical, syntax or spelling errors. Electronically signed by: Nemesio Ware M.D. 12/04/2017 1:09 PM Dictated Date/Time: 12/04/2017 1:08 PM
== END | disposition home or self-care (01) ==
LOC: C.RAD1850 12:51
PROVIDERS: ATTEND Physician Assistant Medical
DX: E06.3 Autoimmune thyroiditis (principal); J18.9 Pneumonia, unspecified organism

== ENCOUNTER → 2017-12-26 | Day surgery (SDC) | payer OTHER ==
[2017-12-12 08:39] VITALS: Ht 177.8 cm; Wt 85.0 kg
[~2017-12-26] VITALS: Ht 177.8 cm; Wt 85.0 kg
[~2017-12-26] MED LIST changes: -FRRS300 PO; +LIDOCAINE HCL 2% 2 ML VIAL (20MG/ML) ONE; -MOME16.7 INH; -MRLP17 PO; +MULT-513 PO; -PRD20 PO; +PROPOFOL IV EMULSION 10 MG/ML 20 ML VIAL IV ONE; -SIMV40TA2 PO; +SODIUM CHLORIDE 0.9% 500ML 500 ML IV ONE
--- NOTE | 2017-12-26 11:23 | Endo History and Physical ---
History & Physical Date of Service: Dec 26, 2017. Chief Complaint: Hamm's esophgaus, Anemia Referring Physician: Yg Ji History of Present Illness 67 yo CM who presents for EGD secondary to Hamm's Esophagus and Colonoscopy secondary to anemia. Past Medical History Asthma, Male Genitourinary Prob., Gastrointestinal Disorder, Reflux, Blood Dyscrasias, High Cholesterol, Heart Disease, Hypertension, Thyroid Disease, CVA/ TIA Past Surgical History Hx Cardiac Surgery: No Hx Internal Defibrillator: No Hx Pacemaker: No Hx Abdominal Surgery: No Hx of Implantable Prosthesis: No Hx Post-Op Nausea and Vomiting: No Hx Cancer Surgery: No Hx Thoracic Surgery: No Hx Orthopedic: No Hx Urinary Tract Surgery: No Family History None Social History Smoking Status: Former Smoker Hx Substance Use: No Hx Alcohol Use: Yes (6-beers per day on the weekends - QUIT OCT 2017) Allergies Coded Allergies: No Known Allergies (Unverified , 12/26/17) Current Medications Reported Home Medications Medications Dose Route/Sig Max Daily Dose Days Date Category Mvi With Minerals (Multivitamins/Minerals) Tab 1 Tab PO DAILY 12/26/17 Reported Metamucil (Psyllium) 0.52 Gm Cap 1 Dose PO QAM 12/12/17 Reported Ventolin Hfa (Albuterol) 200 Puffs/26424 Mcg Aers 2 Puffs INH Q6H PRN 12/12/17 Reported Flovent Hfa (Fluticasone Propionate) 120 Puffs/00132 Mcg Aero 2 Puff INH BID 12/12/17 Reported Lipitor (Atorvastatin) 80 Mg Tab 80 Mg PO QAM 12/12/17 Reported Allergy Nasal [place] 24 Ho (Fluticasone Propionate (Nasal)) 50 Mcg/Act Spr 2 Sprays TANVIR DAILY 10/23/17 Reported Prilosec (Omeprazole) 40 Mg Cap 40 Mg PO QAM 10/23/17 Reported Synthroid (Levothyroxine Sodium) 125 Mcg Tab 125 Mcg PO QAM 10/23/17 Reported Aspirin Ec (Aspirin) 325 Mg Tab 162.5 Mg PO QAM 12/11/14 Reported Flomax (Tamsulosin Hcl) 0.4 Mg Cap 0.4 Mg PO QAM 12/10/14 Reported Vital Signs Weight (Kilograms): 85 Height (Feet): 5 Height (Inches): 10 Date Time Temp Pulse Resp B/P (MAP) Pulse Ox O2 Delivery O2 Flow Rate FiO2 12/26/17 11:15 36.6 72 18 132/80 (97) 98 Room Air Physical Exam General Appearance: WD/WN, no apparent distress Respiratory/Chest: Auscultation: breath sounds normal Cardiovascular: Heart Auscultation: RRR Abdomen: Bowel Sounds: normal Inspection & Palpation: soft, non-distended, no tenderness, guarding & rebound Assessment and Plan Assessment: 67 yo CM who presents for EGD secondary to Hamm's Esophagus and Colonoscopy secondary to anemia. Plan: Proceed with EGD and colonoscopy.
--- NOTE | 2017-12-26 12:32 | Discharge Instructions ---
Endoscopy Patient Instructions Date / Procedure(s) Performed Dec 26, 2017. Colonoscopy, EGD Allergy Information Coded Allergies: No Known Allergies (Unverified , 12/26/17) Discharge Date / Findings Dec 26, 2017. EGD: Hamm's Esophagus s/p biopsies, Hiatal hernia Colonoscopy: Diverticulosis, Internal hemorrhoids Medication Instructions Stopped Medication(s): Aspirin last took on 12/25/17 OK to resume all medications today as prescribed Reported Home Medications Medications Dose Route/Sig Max Daily Dose Days Date Category Mvi With Minerals (Multivitamins/Minerals) Tab 1 Tab PO DAILY 12/26/17 Reported Metamucil (Psyllium) 0.52 Gm Cap 1 Dose PO QAM 12/12/17 Reported Ventolin Hfa (Albuterol) 200 Puffs/01196 Mcg Aers 2 Puffs INH Q6H PRN 12/12/17 Reported Flovent Hfa (Fluticasone Propionate) 120 Puffs/18079 Mcg Aero 2 Puff INH BID 12/12/17 Reported Lipitor (Atorvastatin) 80 Mg Tab 80 Mg PO QAM 12/12/17 Reported Allergy Nasal [place] 24 Ho (Fluticasone Propionate (Nasal)) 50 Mcg/Act Spr 2 Sprays TANVIR DAILY 10/23/17 Reported Prilosec (Omeprazole) 40 Mg Cap 40 Mg PO QAM 10/23/17 Reported Synthroid (Levothyroxine Sodium) 125 Mcg Tab 125 Mcg PO QAM 10/23/17 Reported Aspirin Ec (Aspirin) 325 Mg Tab 162.5 Mg PO QAM 12/11/14 Reported Flomax (Tamsulosin Hcl) 0.4 Mg Cap 0.4 Mg PO QAM 12/10/14 Reported Provider Instructions Activity Restrictions - No exercising or heavy lifting for 24 hours. - Do not drink alcohol the day of the procedure. - Do not drive a car or operate machinery until the day after the procedure. - Do not make any important decisions or sign important papers in 24 hours after the procedure. Following Day: - Return to full activity which may include returning to work/school. Diet Start your diet with liquids and light foods (jello, soup, juice, toast). Then eat your usual diet if not nauseated. Treatment For Common After Affects For mild abdominal pain, bloating, or excessive gas: - Rest - Eat lightly - Lie on right side Follow-Up Information Follow-up with Yg Ji as scheduled Anesthesia Information What You Should Know You have had a procedure that required some medicine to reduce anxiety and discomfort. This treatment is called moderate sedation. After receiving the treatment, you may be sleepy, but you will be able to breathe on your own. The effects of the treatment may last for several hours. Follow these instructions along with Activity/Diet recommendations noted above: * Do NOT do anything where dizziness or clumsiness would be dangerous. * Rest quietly at home today, then you can be up and about tomorrow. * Have a responsible person stay with you the rest of today. * You may have had an I.V. today. If so, you may take the dressing off later today. Recommendations Call your doctor if: * Trouble breathing * Continuous vomiting for more than 24 hours * Temperature above 101 degrees * Severe abdominal pain or bloating * Pain not relieved by pain medicine ordered * There is increased drainage or redness from any incision * A large amount of rectal bleeding greater than 2-3 tablespoons. (If you had a polyp/s removed or have hemorrhoids, a small amount of blood - from the rectum is to be expected.) * You have any unanswered questions or concerns. IN THE EVENT OF A SERIOUS EMERGENCY, GO TO THE NEAREST EMERGENCY ROOM Your discharge instructions were prepared by provider Jonathan Logan. Patient Instructions Signature Page Jaron Mclain Patient (or Guardian) Signature/Date: I have read and understand the instructions given to me by my caregivers. Caregiver/RN/Doctor Signature/Date: The above-named patient and/or guardian has received patient instructions on this date. + Original Patient Signature Page (only) stays with chart. Please make copy for patient.
--- NOTE | 2017-12-26 12:39 | GI REPORT ---
Procedure Date: 12/26/2017 11:34 AM Procedure: Upper GI endoscopy Indications: Follow-up of Hamm's esophagus Medicines: Monitored Anesthesia Care Complications: No immediate complications. Estimated Blood Loss: Estimated blood loss: none. Procedure: Pre-Anesthesia Assessment: - Prior to the procedure, a History and Physical was performed, and patient medications and allergies were reviewed. The patient's tolerance of previous anesthesia was also reviewed. The risks and benefits of the procedure and the sedation options and risks were discussed with the patient. All questions were answered, and informed consent was obtained. Prior Anticoagulants: The patient has taken aspirin, last dose was 1 day prior to procedure. ASA Grade Assessment: II - A patient with mild systemic disease. After reviewing the risks and benefits, the patient was deemed in satisfactory condition to undergo the procedure. After obtaining informed consent, the endoscope was passed under direct vision. Throughout the procedure, the patient's blood pressure, pulse, and oxygen saturations were monitored continuously. The scope was introduced through the mouth, and advanced to the second part of duodenum. The upper GI endoscopy was accomplished without difficulty. The patient tolerated the procedure well. Findings: There were esophageal mucosal changes consistent with long-segment Hamm's esophagus present in the distal esophagus. The maximum longitudinal extent of these mucosal changes was 5 cm in length. Mucosa was biopsied with a cold forceps for histology. One specimen bottle was sent to pathology. A medium-sized hiatal hernia was present. The examined duodenum was normal. Impression: - Esophageal mucosal changes consistent with long-segment Hamm's esophagus. Biopsied. - Medium-sized hiatal hernia. - Normal examined duodenum. Recommendation: - Resume previous diet. - Continue present medications. - Await pathology results. - Return to primary care physician as previously scheduled. Jonathan Logan DO 12/26/2017 12:38:57 PM This report has been signed electronically. Note Initiated On: 12/26/2017 11:34 AM I attest to the content of the Intraoperative Record and orders documented therein, exceptions below
--- NOTE | 2017-12-26 12:42 | GI REPORT ---
Procedure Date: 12/26/2017 12:06 PM Procedure: Colonoscopy Indications: Iron deficiency anemia Medicines: Monitored Anesthesia Care Complications: No immediate complications. Estimated Blood Loss: Estimated blood loss: none. Procedure: Pre-Anesthesia Assessment: - Prior to the procedure, a History and Physical was performed, and patient medications and allergies were reviewed. The patient's tolerance of previous anesthesia was also reviewed. The risks and benefits of the procedure and the sedation options and risks were discussed with the patient. All questions were answered, and informed consent was obtained. Prior Anticoagulants: The patient has taken aspirin, last dose was 1 day prior to procedure. ASA Grade Assessment: II - A patient with mild systemic disease. After reviewing the risks and benefits, the patient was deemed in satisfactory condition to undergo the procedure. After I obtained informed consent, the scope was passed under direct vision. Throughout the procedure, the patient's blood pressure, pulse, and oxygen saturations were monitored continuously. The scope was introduced through the anus and advanced to the terminal ileum. The colonoscopy was performed without difficulty. The patient tolerated the procedure well. The quality of the bowel preparation was good. The ileocecal valve, appendiceal orifice, and rectum were photographed. Findings: The perianal and digital rectal examinations were normal. Multiple small-mouthed diverticula were found in the sigmoid colon. Non-bleeding internal hemorrhoids were found during retroflexion. The hemorrhoids were small. Impression: - Diverticulosis in the sigmoid colon. - Non-bleeding internal hemorrhoids. - No specimens collected. Recommendation: - Resume previous diet. - Continue present medications. - Repeat colonoscopy in 10 years for surveillance. - Return to primary care physician as previously scheduled. Jonathan Logan DO 12/26/2017 12:41:42 PM This report has been signed electronically. Note Initiated On: 12/26/2017 12:06 PM I attest to the content of the Intraoperative Record and orders documented therein, exceptions below
[2017-12-26 12:56] VITALS: BP 96/63; PULSE 76; O2SAT 98
--- NOTE | 2017-12-26 13:01 | Anesthesiology Progress Note ---
Anesthesia Post Op Note Date & Time Dec 26, 2017 at 13:01 Vital Signs Pain Intensity: 0 Vital Signs Past 12 Hours Date Time Temp Pulse Resp B/P (MAP) Pulse Ox O2 Delivery O2 Flow Rate FiO2 12/26/17 12:56 76 18 96/63 (74) 98 Room Air 12/26/17 12:42 73 18 96/58 (71) 98 Room Air 12/26/17 12:28 71 18 97/64 (75) 97 Room Air 12/26/17 11:15 36.6 72 18 132/80 (97) 98 Room Air Notes Mental Status: alert / awake / arousable, participated in evaluation Pt Amnestic to Procedure: Yes Nausea / Vomiting: adequately controlled Pain: adequately controlled Airway Patency, RR, SpO2: stable & adequate BP & HR: stable & adequate Hydration State: stable & adequate Anesthetic Complications: no major complications apparent
== END | disposition home or self-care (01) ==
LOC: C.GI 10:28
PROVIDERS: ATTEND Internal Medicine
DX: D50.9 Iron deficiency anemia, unspecified (principal); K57.30 Diverticulosis of large intestine without perforation or abscess without bleeding; K64.8 Other hemorrhoids; Z09 Encounter for follow-up examination after completed treatment for conditions other than malignant neoplasm; K44.9 Diaphragmatic hernia without obstruction or gangrene; J45.909 Unspecified asthma, uncomplicated; I10 Essential (primary) hypertension; K21.9 Gastro-esophageal reflux disease without esophagitis; E78.00 Pure hypercholesterolemia, unspecified; Z86.73 Personal history of transient ischemic attack (TIA), and cerebral infarction without residual deficits; Z79.82 Long term (current) use of aspirin; Z87.891 Personal history of nicotine dependence; Z79.899 Other long term (current) drug therapy

== ENCOUNTER → 2017-12-29 | Outpatient (CLI) | payer OTHER ==
[~2017-12-29] MED LIST changes: -LIDOCAINE HCL 2% 2 ML VIAL (20MG/ML) ONE; -PROPOFOL IV EMULSION 10 MG/ML 20 ML VIAL IV ONE; -SODIUM CHLORIDE 0.9% 500ML 500 ML IV ONE
--- NOTE | 2017-12-29 11:05 | DIAGNOSTIC IMAGING REPORT ---
(BARIUM SWALLOW) ESOPHAGUS CLINICAL HISTORY: K44.9 Hiatal [id number] COMPARISON STUDY: None FLUOROSCOPY TIME: 0.9 minutes. FINDINGS: Patient initiates swallowing function well. Esophagus is normal in course and caliber. There is a hiatal hernia. Moderate gastroesophageal reflux. There are findings of mild distal esophageal irritability and/or spasm. IMPRESSION: 1. Hiatal hernia. 2. Moderate gastroesophageal reflux. 3. Moderate distal esophageal spasm and/or irritability. The above report was generated using voice recognition software. It may contain grammatical, syntax or spelling errors. Electronically signed by: Nemesio Ware M.D. 12/29/2017 11:04 AM Dictated Date/Time: 12/29/2017 11:02 AM
== END | disposition home or self-care (01) ==
LOC: C.RAD 09:53
PROVIDERS: ATTEND Internal Medicine
DX: K44.9 Diaphragmatic hernia without obstruction or gangrene (principal); K21.9 Gastro-esophageal reflux disease without esophagitis; K22.4 Dyskinesia of esophagus

== ENCOUNTER 2018-05-03 09:00 | Observation (INO) | payer OTHER ==
[2018-04-17 09:41] VITALS: BMI 27.0
[2018-05-03] VITALS (9 sets, daily range): BP systolic 115–157; BP diastolic 63–88; PULSE 53–86; TEMP 35.5–36.4; O2SAT 95–99; Ht 177.8 cm; Wt 86.4 kg
[~2018-05-03] VITALS: Ht 177.8 cm; Wt 86.4 kg
[~2018-05-03 09:00] MED LIST changes: +CEFAZOLIN 2000MG IV PUSH 15 ML IV SCH; -FLUT50SP45 NAE; +LACTATED RINGER'S 1000ML 1,000 ML IV SCH
[2018-05-03] MEDS ORDERED: HYDR-5688 PO (09:28)
--- NOTE | 2018-05-03 09:30 | Discharge Instructions ---
Discharge Instructions Date of Service May 03, 2018. Admission Reason for Admission: Hiatal Hernia Discharge Discharge Diagnosis / Problem: laparoscopic Ha Discharge Goals Goal(s): Decrease discomfort Activity Recommendations Activity Limitations: as noted below Lifting Limitations: no more than 10 pounds Shower/Bathe: no limitations Driving or Machine Use: resume 3 days after discharge . Instructions / Follow-Up Instructions / Follow-Up Dr. Martell in 1-2 weeks as planned, call the office [phone] if you have any questions Current Hospital Diet Patient's current hospital diet: Discharge Diet Recommended Diet: Full Liquid Diet (as discussed ) Pending Studies Studies pending at discharge: no Medical Emergencies . Who to Call and When: Medical Emergencies: If at any time you feel your situation is an emergency, please call 911 immediately. . Non-Emergent Contact Non-Emergency issues call your: Surgeon Call Non-Emergent contact if: you have a fever, temperature is above 101.5, your pain is not controlled, wound has increased redness, wound has increased pain, you have any medication questions . "Provider Documentation" section prepared by Enmanuel Henry. .
--- NOTE | 2018-05-03 10:35 | History & Physical Bridge Note ---
H&P Re-Evaluation Bridge Note: I have examined the patient, reviewed the History & Physical and in the interval since the performance of the History & Physical I have noted the following changes of clinical significance: No changes noted
[2018-05-03] MEDS ORDERED: FENTANYL CITRATE INJ 50 MCG/1 ML 2 ML VIAL ONE ×3 (10:51→11:52)
[2018-05-03] MEDS ORDERED: MIDAZOLAM HCL 1 MG/ML 2ML VIAL ONE (10:51)
[2018-05-03] MEDS ORDERED: BUPIVACAINE/EPINEPHRINE 0.5% MPF 1:200,000 30 ML VIAL ONE (10:54)
[2018-05-03] MEDS ORDERED: MINERAL OIL LIGHT 10 ML BTL ONE (11:10)
[2018-05-03] MEDS ORDERED: HYDROmorphone INJ 2 MG/ML SYR/VIAL ONE (11:52)
[2018-05-03] MEDS ORDERED: PROMETHAZINE HCL INJ 12.5 MG in SODIUM CHLORIDE 0.9% 50ML 50 ML IV PRN (12:00)
[2018-05-03] MEDS ORDERED: FLUMAZENIL 0.1 MG/1 ML 10 ML VIAL IV PRN (12:00)
[2018-05-03] MEDS ORDERED: EpHEDrine SULFATE INJ 50 MG/ML AMP IV PRN (12:00)
[2018-05-03] MEDS ORDERED: HYDROmorphone INJ 0.5 MG/0.5 ML SYR IV PRN (12:00)
[2018-05-03] MEDS ORDERED: ONDANSETRON INJ 2 MG/ML 2 ML VIAL IV PRN ×2 (12:00→13:15)
[2018-05-03] MEDS ORDERED: ATROPINE SULFATE 0.1 MG/ML 5ML SYR IV PRN (12:00)
[2018-05-03] MEDS ORDERED: LABETALOL HCL IV 5 MG/ML 20ML IV PRN (12:00)
[2018-05-03] MEDS ORDERED: NALOXONE HCL 0.4 MG/1 ML VIAL/CARP IV PRN (12:00)
[2018-05-03] MEDS ORDERED: ONDANSETRON INJ 2 MG/ML 2 ML VIAL ONE (12:38)
[2018-05-03] MEDS ORDERED: ROCURONIUM BROMIDE 10 MG/ML 5 ML VIAL ONE (12:38)
[2018-05-03] MEDS ORDERED: EpHEDrine SULFATE INJ 50 MG/ML AMP ONE (12:38)
[2018-05-03] MEDS ORDERED: PROPOFOL IV EMULSION 10 MG/ML 20 ML VIAL ONE (12:38)
[2018-05-03] MEDS ORDERED: NEOSTIGMINE METHYLSULFATE 5 MG/5 ML SYR ONE (12:38)
[2018-05-03] MEDS ORDERED: KETOROLAC TROMETHAMINE 30 MG/ML VIAL ONE (12:38)
[2018-05-03] MEDS ORDERED: LIDOCAINE HCL 2% 2 ML VIAL (20MG/ML) ONE (12:38)
[2018-05-03] MEDS ORDERED: PHENYLEPHRINE 100MCG/ML 5ML SYR ONE (12:38)
[2018-05-03] MEDS ORDERED: DEXAMETHASONE SOD INJ 4 MG/ML VIAL ONE (12:38)
[2018-05-03] MEDS ORDERED: GLYCOPYRROLATE INJ 0.2 MG/ML VIAL ONE (12:38)
--- NOTE | 2018-05-03 12:54 | [facility] Post Operative Brief Note ---
Immediate Operative Summary Operative Date May 03, 2018. Pre-Operative Diagnosis Hamm's Esophagus, Hiatal Hernia Post-Operative Diagnosis same as preop Procedure(s) Performed Laparoscopic Hiatal Hernia Repair with Ha Fundoplication; posterior gastropexy Surgeon Dr. Dale Martell Heatset Winder Operator Surgeon(s) Enmanuel Henry PA-C Estimated Blood Loss 10ml Findings Consistent with Post-Op Diagnosis Specimens no specimen per surgeon Anesthesia Type General Complication(s) none
[2018-05-03] MEDS ORDERED: ONDA4TAB65 PO (13:01)
[2018-05-03] MEDS ORDERED: MoRPHine SULFATE 4 MG/ML 1 ML CARP\\VIAL IV PRN (13:15)
[2018-05-03] MEDS ORDERED: ALBUTEROL HFA 8 GM INHALER INH PRN (13:15)
[2018-05-03] MEDS ORDERED: HYDROCODONE/ACETAMIN 5/325MG TAB PO PRN ×2 (13:15)
--- NOTE | 2018-05-03 13:24 | [facility] Operative Report ---
Operative Report Operative Date May 03, 2018. Pre-Operative Diagnosis Hamm's Esophagus, Hiatal Hernia Post-Operative Diagnosis same as preop Procedure(s) Performed Laparoscopic Hiatal Hernia Repair with Ha Fundoplication; posterior gastropexy Surgeon Dr. Dale Martell Head Golf Coach Surgeon(s) Enmanuel Henry PA-C Estimated Blood Loss 10ml Specimens no specimen per surgeon Anesthesia Type General Complication(s) none Description of Procedure After informed consent was obtained the patient was taken to the operating room and placed in supine position. After successful intubation a Silverio catheter was placed and the abdomen was shaved and sterilely prepped and draped in usual fashion. A supraumbilical incision was made with an 11 blade scalpel and carried down through the soft tissue using electrocautery. The anterior rectus fascia was opened using electrocautery and 2 #0 Vicryl stay sutures were placed. Peritoneum was elevated with hemostats and incised under direct vision using a Metzenbaum scissor. A finger sweep was performed and a 12 mm Yousif trocar was placed. The abdomen was insufflated to 18 mmHg. The laparoscope was inserted and the abdomen examined 360 with no initial abnormality seen. A subxiphoid 12 mm port a right upper quadrant 12 mm port a right flank 5 mm port in the left flank 5 mm port were all placed under direct vision. The patient was placed in reverse Trendelenburg position. A liver retractor was used the entire procedure to help with exposure. Anesthesia placed an orogastric tube to decompress the stomach and then removed it. After we elevated the left lobe liver there was an obvious probably 5 cm hiatal hernia with gastric incarceration. We were able to use traction to easily reduce the stomach. We then used the sonocision device to take down the hernia sac in 360. We did have anesthesia place a 50 Hungarian bougie so that we could more readily identify the esophagus. Once we had the hernia sac completely taken down the stomach stayed self reduced in the abdomen with no tension. I was able to delineate the right and left crew the diaphragm posterior to the stomach and we used an 0- dacron stitch with the Endo Stitch device to primarily close the hernia defect posteriorly with several sutures. Following this we then placed several sutures anteriorly as well to primarily close the hiatal hernia. Next we freed up the short gastric vessels again using the ultrasonic scalpel. We took down the top 4 vessels making for a very floppy fundus. Next we created a small window posterior to the GE junction bluntly. I then used a reticulating grasper to come through this defect and reticulated up and out by the angle of His. I was then able to grab the fundus of the stomach and easily pull it through this large window. Shoeshine test showed that there was no tension on the stomach itself and in fact stayed on the medial side of the esophagus without any sutures on it. Once we did this we performed a posterior gastropexy with 0-dacron securing the fundus to the right crew the diaphragm in simple interrupted fashion. Next we completed the 360 wrap by taking stomach lateral to the esophagus and suturing it to the fundus medial to the esophagus. On several of the sutures we also grab some of the esophageal fat pad. It seemed to lay nice and tension-free did not appear to be too tight. We then removed the bougie without difficulty. Irrigation was performed. There is adequate hemostasis at the completion of the case. The liver retractor was removed as were all the trochars and the abdomen was desufflated. The fascia of the camera port was closed using 0 Vicryl in a [id number] fashion. All the wounds were irrigated and closed using 4-0 Monocryl. Marcaine was injected around for postoperative analgesia and skin glue used as a dressing. Patient was awakened extubated and transferred recovery in stable condition. My physician assistant shift supervisor was present for the entire case. He helped with prepping the patient. He helped with retraction as well as running the camera throughout the case. He helped with wound closure and dressing placement. I attest to the content of the Intraoperative Record and any orders documented therein. Any exceptions are noted below.
[2018-05-03] MEDS ORDERED: IV FLUIDS COMPLETED PRN (13:45)
--- NOTE | 2018-05-03 14:09 | Anesthesiology Progress Note ---
Anesthesia Post Op Note Date & Time May 03, 2018 at 14:09 Vital Signs Pain Intensity: 0 Vital Signs Past 12 Hours Date Time Temp Pulse Resp B/P (MAP) Pulse Ox O2 Delivery O2 Flow Rate FiO2 05/03/18 13:47 36.4 71 16 131/76 (88) 97 Nasal Cannula 2 05/03/18 13:46 104/82 05/03/18 13:42 73 15 99 05/03/18 13:42 73 15 05/03/18 13:41 123/72 05/03/18 13:37 76 17 99 05/03/18 13:37 76 17 05/03/18 13:36 68 10 130/75 100 05/03/18 13:36 67 10 05/03/18 13:31 76 12 120/74 100 05/03/18 13:31 76 12 05/03/18 13:26 79 10 123/75 100 05/03/18 13:26 80 10 05/03/18 13:12 36.1 95 14 131/81 100 Oxymask 10 05/03/18 09:31 36.4 53 20 157/83 (107) 99 Room Air Notes Mental Status: alert / awake / arousable, participated in evaluation Pt Amnestic to Procedure: Yes Nausea / Vomiting: adequately controlled Pain: adequately controlled Airway Patency, RR, SpO2: stable & adequate BP & HR: stable & adequate Hydration State: stable & adequate Anesthetic Complications: no major complications apparent
[2018-05-03] MEDS: LACTATED RINGER'S 1000ML 1,000 ML IV SCH (18:32)
[2018-05-03] MEDS: FLUTICASONE HFA 220 MCG INHALER INH SCH (21:12)
[2018-05-04] MEDS: LACTATED RINGER'S 1000ML 1,000 ML IV SCH ×2 (02:07→07:00)
[2018-05-04 03:26] VITALS: BP 153/82; PULSE 74; TEMP 36.4; O2SAT 95
[2018-05-04] MEDS ORDERED: LEVOTHYROXINE 125 MCG TAB PO SCH (06:00)
--- NOTE | 2018-05-04 07:48 | Anesthesiology Progress Note ---
Anesthesia Post Op Note Date & Time May 04, 2018 at 07:48 Vital Signs Pain Intensity: 6.0 Vital Signs Past 12 Hours Date Time Temp Pulse Resp B/P (MAP) Pulse Ox O2 Delivery O2 Flow Rate FiO2 05/04/18 03:26 36.4 74 18 153/82 (105) 95 Room Air 05/04/18 00:25 Room Air 05/03/18 23:06 36.3 70 16 132/76 (94) 98 Room Air 05/03/18 19:53 36.2 75 18 117/74 (88) 97 Room Air Notes Mental Status: alert / awake / arousable, participated in evaluation Pt Amnestic to Procedure: Yes Nausea / Vomiting: adequately controlled Pain: adequately controlled Airway Patency, RR, SpO2: stable & adequate BP & HR: stable & adequate Hydration State: stable & adequate Anesthetic Complications: no major complications apparent
--- NOTE | 2018-05-04 07:57 | Surgery Progress Note ---
Surgery Progress Note Date of Service May 04, 2018. Subjective Post OP Day: 1 + feeling well, + complaints (Does report some mild shoulder pain likely due to gas from laparoscopic approach), + ambulating, + pain controlled, + diet ( Tolerating clears), No bowel movement, No flatus, No nausea, No vomiting patient had some difficulty urinating last night and was straight cathed. Since he has been urinating without issue. Objective Vital Signs: Date Time Temp Pulse Resp B/P (MAP) Pulse Ox O2 Delivery O2 Flow Rate FiO2 05/04/18 03:26 36.4 74 18 153/82 (105) 95 Room Air 05/04/18 00:25 Room Air 05/03/18 23:06 36.3 70 16 132/76 (94) 98 Room Air 05/03/18 19:53 36.2 75 18 117/74 (88) 97 Room Air 05/03/18 17:25 36.2 86 18 115/63 (80) 95 Room Air 05/03/18 16:17 35.5 76 18 128/81 (97) 98 Nasal Cannula 2.0 05/03/18 15:30 97 Nasal Cannula 2.0 05/03/18 15:22 35.5 73 18 150/88 (108) 97 Nasal Cannula 2.0 05/03/18 14:45 35.7 67 16 127/73 (91) 99 Nasal Cannula 2.0 05/03/18 14:15 36.4 72 16 133/75 (94) 98 Nasal Cannula 2.0 05/03/18 14:15 98 Nasal Cannula 2.0 05/03/18 13:47 36.4 71 16 131/76 (88) 97 Nasal Cannula 2 05/03/18 13:46 104/82 05/03/18 13:42 73 15 99 05/03/18 13:42 73 15 05/03/18 13:41 123/72 05/03/18 13:37 76 17 99 05/03/18 13:37 76 17 05/03/18 13:36 68 10 130/75 100 05/03/18 13:36 67 10 05/03/18 13:31 76 12 120/74 100 05/03/18 13:31 76 12 05/03/18 13:26 79 10 123/75 100 05/03/18 13:26 80 10 05/03/18 13:12 36.1 95 14 131/81 100 Oxymask 10 05/03/18 09:31 36.4 53 20 157/83 (107) 99 Room Air General Appearance: WD/WN, no apparent distress Head: normocephalic, atraumatic Respiratory/Chest: no respiratory distress Abdomen: non distended, soft, no organomegaly, + tenderness (mild incisional TTP) Incision(s): clean, dry, intact, no erythema, no drainage Laboratory Results: Results Past 24 Hours Test 05/03/18 09:50 Range/Units Prothrombin Time 10.7 9.0-12.0 SECONDS Prothromb Time International Ratio 1.0 0.9-1.1 Activated Partial Thromboplast Time 28.0 21.0-31.0 SECONDS Partial Thromboplastin Ratio 1.1 Assessment & Plan POD #1 s/p Laparoscopic Hiatal Hernia Repair with Ha Fundoplication; posterior gastropexy Doing well. Abdomen soft, non-distended, minimal incisional tenderness. incisions c/d/i. Tolerating clears, no N/V. Urinating without issue. Advance to full liquids. OOB as tolerated. d/c today if he continues to do well. Please contact with questions or concerns.
[2018-05-04 08:06] VITALS: BP 128/82; PULSE 76; TEMP 36.4; O2SAT 97
[2018-05-04 08:08] VITALS: O2SAT 97
[2018-05-04] MEDS: FLUTICASONE HFA 220 MCG INHALER INH SCH (08:39)
[2018-05-04] MEDS ORDERED: ATORVASTATIN 40 MG TAB PO SCH (09:00)
[2018-05-04] MEDS ORDERED: ASPIRIN 325 MG ECTAB PO SCH (09:00)
[2018-05-04] MEDS ORDERED: TAMSULOSIN HCL 0.4 MG CAP PO SCH (09:00)
[2018-05-04] MEDS ORDERED: PANTOprazole SOD 40 MG TAB PO SCH (09:00)
[2018-05-04 11:49] VITALS: BP 128/82; PULSE 76; TEMP 36.4; O2SAT 97
--- NOTE | 2018-05-11 11:25 | Discharge Summary ---
Discharge Summary Date of Service May 11, 2018. Admission Date/Reason May 03, 2018 at 10:45 Hiatal Hernia. Discharge Date/Disposition May 04, 2018 Home Diagnosis Principal Diagnosis: Hamm's Esophagus, Hiatal Hernia Secondary Diagnoses/Problems: Asthma Procedure(s) Performed Laparoscopic Hiatal Hernia Repair with Ha Fundoplication; posterior gastropexy Medication Reconciliation New Medications: Hydrocodone/Acetaminophen 5MG/325MG ([place] 5MG/325MG) Tab 1-2 TABLET PO Q4H PRN for Pain, #30 TAB Ondansetron Hcl (Zofran) 4 Mg Tab 4 MG PO PRN PRN for q6h, #20 TAB Continued Medications: Albuterol Hfa (Ventolin Hfa) 200 Puffs/59936 Mcg Aers 2 PUFFS INH Q6H PRN for Shortness of Breath, INHALER Aspirin (Aspirin Ec) 325 Mg Tab 162.5 MG PO QAM WILL ASK SURGEON FOR INSTRUCTIONS Atorvastatin (Lipitor) 80 Mg Tab 80 MG PO QAM, TAB Fluticasone Propionate (Flovent Hfa) 120 Puffs/09803 Mcg Aero 2 PUFF INH BID Levothyroxine Sodium (Synthroid) 125 Mcg Tab 125 MCG PO QAM, TAB Multivitamins/Minerals (Mvi With Minerals) Tab 1 TAB PO QAM, TAB Omeprazole (Prilosec) 40 Mg Cap 40 MG PO QAM, CAP Psyllium (Metamucil) 0.52 Gm Cap 1 DOSE PO QAM Tamsulosin Hcl (Flomax) 0.4 Mg Cap 0.4 MG PO QAM, CAP Admission Physical Exam As per Admitting History & Physical. Hospital Course 67 y/o male with hiatal hernia and Hamm's esophagus taken to the OR for Laparoscopic Hiatal Hernia Repair with Ha Fundoplication and posterior gastropexy. Procedure was well tolerated and he was transferred to the surgical floor for overnight observation. He was straight catheterized one time overnight for urinary retention. By the next morning he was voiding without difficulty, tolerating liquid diet and oral analgesics. His abdomen was benign. He was stable for discharge on full liquid diet with office follow-up in 1-2 weeks. Discharge Instructions Please refer to the electronic Patient Visit Report (Discharge Instructions) for additional information. Follow-up appointment with dr. Martell in 1-2 weeks
== END 2018-05-04 12:30 | disposition home or self-care (01) ==
LOC: C.ACU 09:00 → C.MSN 10:45 → ENRESERV 13:48
PROVIDERS: ADMIT Surgery; ATTEND Surgery
DX: K22.70 Barrett's esophagus without dysplasia (principal); K44.9 Diaphragmatic hernia without obstruction or gangrene; J45.909 Unspecified asthma, uncomplicated; E78.00 Pure hypercholesterolemia, unspecified; E03.9 Hypothyroidism, unspecified; Z86.73 Personal history of transient ischemic attack (TIA), and cerebral infarction without residual deficits; Z87.891 Personal history of nicotine dependence; Z79.82 Long term (current) use of aspirin; Z79.899 Other long term (current) drug therapy

== ENCOUNTER → 2018-05-24 | Outpatient (CLI) | payer OTHER ==
[~2018-05-24] MED LIST changes: -CEFAZOLIN 2000MG IV PUSH 15 ML IV SCH; +HYDR-5688 PO; -LACTATED RINGER'S 1000ML 1,000 ML IV SCH
[2018-05-24 12:23] LABS: BASO % 0.6 %; BASO ABS # 0.04 K/uL (0-0.2); EOS % 4.1 %; EOS ABS # 0.27 K/uL (0-0.5); HEMATOCRIT 39.3 % (42-52); HEMOGLOBIN 12.8 g/dL (14.0-18.0); IG# 0.01 K/uL (0.00-0.02); LYMPH % 26.4 %; LYMPH ABS # 1.73 K/uL (1.2-3.4); MEAN CELL VOLUME 85.2 fL (80-100); MEAN CORPUSCULAR HEMOGLOBIN 27.8 pg (25-34); MEAN CORPUSCULAR HGB CONC 32.6 g/dl (32-36); MEAN PLATELET VOLUME 10.6 fL (7.4-10.4); MONO % 8.4 %; MONO ABS # 0.55 K/uL (0.11-0.59); NEUT % 60.3 %; NEUT ABS # 3.96 K/uL (1.4-6.5); PLATELET COUNT 293 K/uL (130-400); RED CELL DISTRIBUTION WIDTH CV 14.3 % (11.5-14.5); RED CELL DISTRIBUTION WIDTH SD 44.4 fL (36.4-46.3); WHITE BLOOD COUNT 6.56 K/uL (4.8-10.8)
[2018-05-24 12:31] LABS: HEMOGLOBIN A1C 5.8 % (4.5-5.6)
== END | disposition home or self-care (01) ==
LOC: C.LABBFT 08:27
PROVIDERS: ATTEND Internal Medicine
DX: E78.00 Pure hypercholesterolemia, unspecified (principal); D72.819 Decreased white blood cell count, unspecified; D64.9 Anemia, unspecified; R73.01 Impaired fasting glucose

== ENCOUNTER → 2018-05-31 | Outpatient (CLI) | payer OTHER ==
--- NOTE | 2018-05-31 12:29 | DIAGNOSTIC IMAGING REPORT ---
CHEST 2 VIEWS ROUTINE CLINICAL HISTORY: 67 years-old Male presenting with COUGH. TECHNIQUE: PA and lateral views of the chest were obtained. COMPARISON: 12/04/2017. FINDINGS: Atherosclerosis of the aortic arch. Cardiac silhouette normal in size. Interval resolution of ill-defined patchy opacities, which were evident on prior exam. No new pulmonary opacity. No pleural effusion or pneumothorax. Degenerative changes of the thoracic spine. Upper abdomen normal. IMPRESSION: 1. No acute cardiopulmonary disease. Electronically signed by: Ede Abbasi M.D. 05/31/2018 12:28 PM Dictated Date/Time: 05/31/2018 12:26 PM
== END | disposition home or self-care (01) ==
LOC: C.RAD1850 11:17
PROVIDERS: ATTEND Internal Medicine
DX: R05 Cough (principal); D50.9 Iron deficiency anemia, unspecified; N40.0 Benign prostatic hyperplasia without lower urinary tract symptoms